=== PATIENT | female | born 1980 | race Caucasian/White ===

== ENCOUNTER 2019-09-18 04:05 | Emergency (ER) | payer OTHER ==
[~2019-09-18] VITALS: Ht 157.5 cm; Wt 63.5 kg
[~2019-09-18 04:05] MED LIST: ACETAMINOPHEN-1 EAC1 PO; AMITRIPTYLINE H25 M2 PO; BENTYL20 MG PO; BUSPAR 5 MG TABL5 M1 PO; BUSPAR30 MG PO; BUSPIRONE HCL15 MG PO; CIPRO250 M1 PO; CYMBALTA60 MG PO; ESTRACE2 MG PO; FLAGYL500 M1 PO; FLOMAX0.4 MG; HYDROCODON-ACE1 EACH PO; IBUPROFEN 400400 M2 PO; IMITREX4 MG/0.5 M SQ; INDERAL LA60 M1 PO; MACROBID 100 M100 M1 PO; MAXALT MLT10 MG PO; MIRTAZAPINE15 M1 PO; MOBIC7.5 MG PO; MONISTAT 7 COM1 EAC1 VAG; MYLANTA TABLET1 TA1 PO; NAPROSYN500 MG PO; NEURONTIN 300M300 M2 PO; NORCO 5-325 TA1 EACH PO; NORCO 7.5-3251 EACH PO; PAMELOR50 MG PO; PROPRANOLOL 20M20 MG PO; ROBAXIN 750 MG750 M1 PO; SEROQUEL 25 MG25 M1 PO; SUMAVEL DO6 MG/0.5 M SQ; VALIUM5 MG PO; VICODIN ES 7.51 EACH PO
[2019-09-18] MEDS ORDERED: ONZETRA XSAIL11 MG IM (04:15)
[2019-09-18] MEDS ORDERED: BUSPIRONE HCL10 MG PO (04:15)
[2019-09-18] MEDS ORDERED: FLEXERIL PO (04:40)
[2019-09-18] MEDS ORDERED: NORCO 5-325 TA1 EAC1 PO (04:40)
[2019-09-18 04:51] LABS: ABSOLUTE EOSINOPHILS 0.2 thou/uL (0.0-0.7); ABSOLUTE LYMPHOCYTES 2.4 thou/uL (0.8-5.3); ABSOLUTE MONOCYTES 0.4 thou/uL (0.0-1.2); ABSOLUTE NEUTROPHILS 2.4 thou/uL (1.6-8.1); BASOPHILS 0.7 %; EOSINOPHILS 3.3 %; HEMATOCRIT 36.5 % (37.0-47.0); HEMOGLOBIN 12.7 gm/dL (12.0-15.0); LYMPHOCYTES 44.1 %; MCH 32.6 pg (26.0-34.0); MCHC 34.7 g/dL (28.0-37.0); MCV 93.8 fL (80.0-100.0); MONOCYTES 7.6 %; MPV 8.5 fl. (7.2-11.1); NUCLEATED RBCS 0 /100WBC; PLATELET COUNT* 250 thou/uL (150-400); POLYS 44.3 %; RBC 3.89 mil/uL (4.20-5.00); RDW-CV 13.7 % (10.5-14.5); WBC 5.3 thou/uL (4.0-11.0)
[2019-09-18 05:28] LABS: CALCIUM 8.9 mg/dL (8.5-10.1); CREATININE 1.1 mg/dL (0.6-1.3); POTASSIUM 3.1 mmol/L (3.5-5.1)
[2019-09-18 05:33] LABS: ALBUMIN 4.1 g/dL (3.4-5.0); TOTAL BILIRUBIN 0.2 mg/dL (<0.1-1.0); TOTAL PROTEIN 7.2 g/dL (6.4-8.2)
[2019-09-18 05:43] VITALS: BP 152/100
--- NOTE | 2019-09-18 14:13 | EKG ---
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 : 1980 Requested By: Prasanth Lehman Order Number: [id number] MD: Soham Sheridan Measurements Intervals [place] Rate: 86 P: 49 AK: 178 QRS: 11 QRSD: 114 T: 46 QT: 353 QTc: 423 Interpretive Statements Sinus rhythm Probable left atrial enlargement Low voltage, precordial leads Consider anterior infarct Minimal ST depression, lateral leads Compared to ECG 03/09/2013 23:12:14 Low QRS voltage now present Myocardial infarct finding now present ST (T wave) deviation now present Sinus bradycardia no longer present Electronically Signed On 09-18-2019 14:11:15 CDT by Soham Sheridan [email or web address] <ELECTRONICALLY SIGNED> By: Soham Sheridan MD, [facility] 09/18/19 1411 0432 0432 Soham Sheridan MD, [facility] /EPI
== END 2019-09-18 05:46 | disposition home or self-care (01) ==
LOC: M.ERS 04:05
PROVIDERS: Family Medicine
DX: M79.602 Pain in left arm (principal); G43.909 Migraine, unspecified, not intractable, without status migrainosus; F41.9 Anxiety disorder, unspecified; F32.9 Major depressive disorder, single episode, unspecified; F17.210 Nicotine dependence, cigarettes, uncomplicated; Z90.710 Acquired absence of both cervix and uterus

== ENCOUNTER 2019-09-19 20:09 | Inpatient (IN) | payer OTHER ==
[~2019-09-19] VITALS: Ht 157.5 cm; Wt 66.2 kg
[~2019-09-19 20:09] MED LIST changes: +BUSPIRONE HCL10 MG PO; +FLEXERIL PO; +NORCO 5-325 TA1 EAC1 PO; +ONZETRA XSAIL11 MG IM
[2019-09-19 20:25] VITALS: BP 109/76
[2019-09-19 22:31] LABS: ABSOLUTE MONOCYTES 1.2 thou/uL (0.0-1.2); ABSOLUTE NEUTROPHILS 11.8 thou/uL (1.6-8.1); BASOPHILS 0.2 %; HEMATOCRIT 32.7 % (37.0-47.0); HEMOGLOBIN 11.2 gm/dL (12.0-15.0); LYMPHOCYTES 7.1 %; MCH 32.3 pg (26.0-34.0); MCHC 34.1 g/dL (28.0-37.0); MCV 94.6 fL (80.0-100.0); MONOCYTES 8.3 %; MPV 9.3 fl. (7.2-11.1); NUCLEATED RBCS 0 /100WBC; PLATELET COUNT* 192 thou/uL (150-400); POLYS 84.4 %; RBC 3.46 mil/uL (4.20-5.00)
[2019-09-19 22:49] LABS: CALCIUM 7.3 mg/dL (8.5-10.1); CREATININE 0.7 mg/dL (0.6-1.3); POTASSIUM 3.7 mmol/L (3.5-5.1)
[2019-09-19 22:59] LABS: ALBUMIN 3.3 g/dL (3.4-5.0); MAGNESIUM 1.7 mg/dL (1.8-2.4); TOTAL BILIRUBIN 0.6 mg/dL (<0.1-1.0); TOTAL PROTEIN 5.8 g/dL (6.4-8.2)
[2019-09-20] VITALS (10 sets, daily range): BP systolic 90–116; BP diastolic 58–83
[2019-09-20 00:17] LABS: AMP/METHAMP Negative (Negative); BARBITURATES Negative (Negative); BENZODIAZEPINES POSITIVE (Negative); COCAINE Negative (Negative); METHADONE Negative (Negative); OPIATES POSITIVE (Negative); PCP Negative (Negative); THC POSITIVE (Negative)
--- NOTE | 2019-09-20 07:43 | NUR ---
PATIENT ADMITTED TO ROOM 222 FROM THE ER AT APPROXIMATELY 0130. VSS ON RA. PATIENT ORIENTED TO ROOM AND POLICIES AND ADMISSION ASSESSMENT COMPLETED. IV IN RIGHT AC- HEPARIN DRIP INFUSING @ 7.62ML/HR. CARDIOLOGY CONSULTED IN THE ER AND CALLED. PATIENT HAS REMAINED NPO SINCE BEING ADMITTED TO UNIT. PATIENT INSTRUCTED TO USE CALL LIGHT WHEN NEEDING ASSISTANCE. HOURLY ROUNDS MADE. WILL CONTINUE WITH PLAN OF CARE AND NURSING TO MONITOR.
[2019-09-20 08:58] LABS: CHOLESTEROL 209 mg/dL (<200); HDL CHOLESTEROL 65 mg/dL (>40); LDL CHOLESTEROL 121 mg/dL (<100); SERUM ASSESSMENT Clear; TC:HDL 3.2 Ratio (Not establshd); TRIGLYCERIDE 115 mg/dL (<150); VLDL 23 mg/dL (<40)
--- NOTE | 2019-09-20 14:10 | EKG ---
[place] [address] ELECTROCARDIOGRAM REPORT Name: HOWARD SARGENTRosales Vyas Room: [address] ADM IN .R.#: [id number] Admission: 09/20/19 Attend Phys: Chayo Weems, Discharge: Date of : 78 Date of Service: 09/19/192014 Report #: [id number] THIS REPORT FOR: //name// [facility] ED Test Date: 2019-09-19 Test Time: 20:15:23 Pat Name: JORDEN SARGENT Department: Room: [facility] Gender: F Technology Teacher: : 1980 Requested By: Rosanne Rosa Order Number: [id number] MD: Vincent Reed Measurements Intervals [place] Rate: 118 P: 58 ND: 154 QRS: -6 QRSD: 92 T: 78 QT: 314 QTc: 441 Interpretive Statements Sinus tachycardia Probable left atrial enlargement Compared to ECG 09/18/2019 04:32:19 Sinus rate has increased Myocardial infarct finding no longer present ST (T wave) deviation no longer present Electronically Signed On 09-20-2019 14:08:17 CDT by Vincent Reed [email or web address] <ELECTRONICALLY SIGNED> By: Vincent Reed MD, FACC 09/20/19 1408 14 14 Vincent Reed MD, FAC /EPI
--- NOTE | 2019-09-20 14:11 | EKG ---
[place] [address] ELECTROCARDIOGRAM REPORT Name: JORDEN SARGENT Asael Room: [address] ADM IN .R.#: [id number] Admission: 09/20/19 Attend Phys: Chayo Weems, Discharge: Date of : 78 Date of Service: 09/19/19 2350 Report #: [id number] THIS REPORT FOR: //name// [facility] ED Test Date: 2019-09-19 Test Time: 23:50:21 Pat Name: JORDEN SARGENT Department: Room: [facility] Gender: F Bank Reconciliator: [facility] : 1980 Requested By: Rosanne Rosa Order Number: [id number] MD: Vincent Reed Measurements Intervals [place] Rate: 108 P: 61 NE: 166 QRS: 10 QRSD: 90 T: 58 QT: 345 QTc: 463 Interpretive Statements Sinus tachycardia Probable left atrial enlargement Compared to ECG 09/18/2019 04:32:19 ST (T wave) deviation no longer present Electronically Signed On 09-20-2019 14:09:30 CDT by Vincent Reed [email or web address] <ELECTRONICALLY SIGNED> By: Vincent Reed MD, [facility] 09/20/19 1409 2350 2350 Vincent Reed MD, [facility] /EPI
--- NOTE | 2019-09-20 16:22 | 2DMMODE ---
[place] [address] 2 D/M-MODE ECHOCARDIOGRAM Name: SARGENTJORDEN Room: [address] IN M.R.#: [id number] Admission: 09/20/19 Attend Phys: Chayo Weems, Discharge: Date of : 78 Date of Service: 09/20/19 1620 Report #: [id number] THIS REPORT FOR: cc: FAM - No family physician/PCP FAM - No family physician/PCP Vincent Reed MD [facility] ~ APPROVED REPORT Study performed: 09/20/2019 14:08:54 EXAM: Comprehensive 2D, Doppler, and color-flow Echocardiogram Patient Location: In-Patient BSA: 1.67 HR: 118 bpm BP: 98/67 mmHg Other Information Study Quality: Fair Indications Non STEMI Dyspnea Chest Pain 2D Dimensions IVSd: 11.79 (7-11mm) LVOT Diam: 18.65 (18-24mm) LVDd: 44.00 mm PWd: 10.48 (7-11mm) Ascending Ao: 28.21 (22-36mm) LVDs: 35.56 (25-40mm) Aortic Root: 23.91 mm Volumes Left Atrial Volume (Systole) LA ESV Index: 15.90 mL/m2 Aortic Valve AoV Peak Linwood.: 0.98 m/s AO Peak Gr.: 3.82 mmHg LVOT Max P.15 mmHg AO Mean Gr.: 2.20 mmHg LVOT Mean P.16 mmHg LVOT Max V: 0.73 m/s AO V2 VTI: 16.62 cm LVOT Mean V: 0.50 m/s THAIS (VTI): 2.31 cm2 LVOT V1 VTI: 14.06 [place] [address] 2 D/M-MODE ECHOCARDIOGRAM Name: JORDEN SARGENT Room: [address] IN .R.#: [id number] Admission: 09/20/19 Attend Phys: Chayo Weems, Discharge: Date of : 78 Date of Service: 09/20/19 1620 Report #: [id number] Mitral Valve E/A Ratio: 1.21 MV Decel. Time: 134.85 ms MV E Max Linwood.: 0.70 m/s MV PHT: 39.11 ms MVA (PHT): 5.63 cm2 TDI E/Lateral E': 14.00 E/Medial E': 7.78 Medial E' Linwood.: 0.09 m/s Lateral E' Linwood.: 0.05 m/s Pulmonary Valve PV Peak Linwood.: 0.79 m/s PV Peak Gr.: 2.52 mmHg Left Ventricle The left ventricle is normal size. There is mild inferolateral hypokinesis. There is normal left ventricular wall thickness. Left ventricular systolic function is borderline. LVEF is 50-55%. Right Ventricle The right ventricle is normal size. The right ventricular systolic function is normal. Atria The left atrium size is normal. The right atrium size is normal. Aortic Valve The aortic valve is normal in structure. No aortic regurgitation is present. There is no aortic valvular stenosis. Mitral Valve The mitral valve is normal in structure. Trace mitral regurgitation. No evidence of mitral valve stenosis. Tricuspid Valve The tricuspid valve is normal in structure. There is no tricuspid valve regurgitation noted. Pulmonic Valve The pulmonary valve is normal in structure. Trace pulmonic regurgitation. Great Vessels The aortic root is normal in size. IVC is [place] [address] 2 D/M-MODE ECHOCARDIOGRAM Name: ROSETTAJORDEN Room: [address] IN [facility]#: [id number] Admission: 09/20/19 Attend Phys: Chayo Weems, Discharge: Date of : 78 Date of Service: 09/20/19 1620 Report #: [id number] collapses >50% with inspiration. Pericardium There is no pericardial effusion. <Conclusion> The left ventricle is normal size. There is normal left ventricular wall thickness. Left ventricular systolic function is borderline. LVEF is 50-55%. The right ventricle is normal size. The left atrium size is normal. The aortic valve is normal in structure. The mitral valve is normal in structure. The tricuspid valve is normal in structure. IVC is normal in size and collapses >50% with inspiration. There is no pericardial effusion. There is mild inferolateral hypokinesis. <ELECTRONICALLY SIGNED> By: Vincent Reed MD, FACC 09/20/19 162 19 19 Vincent Reed MD, FACC /INF
--- NOTE | 2019-09-20 18:45 | NUR ---
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 DENIED ANY PAIN OR HITTING HEAD, NO VISIBLE TRAUMA, VSS. CHARGE NURSE, PHYSICIAN, AND HOUSE SUP NOTIFIED. PT IS IMPULSIVE, NEEDY, AND NON COMPLIANT WITH MEDICATION AND RULES. 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 EDUCATED PT ON IMPORTANCE OF NOT MOVING RIGHT EXTREMITY FOR ALLOTED TIME DUE TO POST CATH, PT STATES UNDERSTANDING BUT CONTINUES TO BE NON COMPLIANT. CATH SITE TO RIGHT GROIN SOFT, DRESSING CLEAN, DRY, AND INTACT, HOURLY ROUNDING COMPLETED.
[2019-09-20] MEDS ORDERED: DIAZEPAM 5 MG5 M1 PO (19:43)
[2019-09-21] VITALS (7 sets, daily range): BP systolic 83–101; BP diastolic 49–66
--- NOTE | 2019-09-21 03:45 | NUR ---
ASSUMED PT CARE AT 1915. NURSING ASSESSMENT COMPLETED AT START OF SHIFT. AA0X4, SR/ST ON MONOTYPE CASTER. PT ANXIOUS AND TEARFUL AT START OF SHIFT. RIGHT GROING CATH SITE DRESSING CLEAN, DRY AND INTACT. SOFT AND NO HEMATOMA PRESENT. AT 0000, INDUSTRIAL TRUCK OPERATOR NOTIFIED RN OF NOT ABLE TO WAKE PT UP DURING VITAL SIGNS. PT LETHARGIC, PT AROUSABLE WITH STERNAL RUB. VSS. PT STATED SHE TOOK SOME PILLS FROM HER PURSE BUT COULDNT TELL WHICH ONES. MEDICATIONS FOUND IN UNLABELED PILL POX (AMPHETAMINE, ADDERALL, VALIUM, ALPRAZOLAM, GABAPENTIN AND OXYCODONE, ALONG WITH VAPE PEN, ORE FEEDER, AND MARIJUANA OILS). MEDS STORED WITH PHARMACY AND OTHER ITEMS WITH SECURITY. PT VOICES NO CONCERNS AT THIS TIME. IVF INFUSING. DR. GONZALEZ NOTIFIED.
[2019-09-21 05:15] LABS: ABSOLUTE EOSINOPHILS 0.1 thou/uL (0.0-0.7); ABSOLUTE NEUTROPHILS 3.9 thou/uL (1.6-8.1); BASOPHILS 0.3 %; EOSINOPHILS 1.7 %; HEMATOCRIT 28.2 % (37.0-47.0); HEMOGLOBIN 9.7 gm/dL (12.0-15.0); LYMPHOCYTES 28.2 %; MCH 32.4 pg (26.0-34.0); MCHC 34.2 g/dL (28.0-37.0); MCV 94.8 fL (80.0-100.0); MONOCYTES 13.9 %; NUCLEATED RBCS 0 /100WBC; PLATELET COUNT* 179 thou/uL (150-400); POLYS 55.9 %; RBC 2.98 mil/uL (4.20-5.00); RDW-CV 13.4 % (10.5-14.5)
[2019-09-21 05:30] LABS: CALCIUM 7.8 mg/dL (8.5-10.1); CREATININE 0.8 mg/dL (0.6-1.3); POTASSIUM 3.6 mmol/L (3.5-5.1)
--- NOTE | 2019-09-21 08:53 | EKG ---
[place] [address] ELECTROCARDIOGRAM REPORT Name: JORDEN SARGENT Room: [address] ADM IN M.R.#: [id number] Admission: 09/20/19 Attend Phys: Chayo Weems, Discharge: Date of : 78 Date of Service: 09/21/19 0343 Report #: [id number] THIS REPORT FOR: //name// [facility] Test Date: 2019-09-21 Test Time: 03:43:53 Pat Name: JORDEN SARGENT Department: Room: [address] Gender: F Parts Room Assistant: JORDANA : 1980 Requested By: Chayo Weems Order Number: [id number] Reading MD: Uriel Real Measurements Intervals [place] Rate: 92 P: 47 MI: 173 QRS: -2 QRSD: 94 T: 59 QT: 362 QTc: 448 Interpretive Statements Sinus rhythm Low voltage, precordial leads Nonspecific T wave flattening Compared to ECG 09/19/2019 23:50:21 Low QRS voltage now present Sinus tachycardia no longer present Electronically Signed On 09-21-2019 8:51:51 CDT by Uriel Real [email or web address] <ELECTRONICALLY SIGNED> By: Uriel Real MD, FAC 09/21/19 0851 0343 0343 Uriel Real MD, FAC /EPI
[2019-09-21 10:24] LABS: URINE BILIRUBIN NEGATIVE (Negative); URINE BLOOD NEGATIVE (Negative); URINE CLARITY CLEAR; URINE COLOR YELLOW; URINE GLUCOSE-RANDOM NEGATIVE (Negative); URINE KETONES NEGATIVE (Negative); URINE LEUKOCYTES-REFLEX NEGATIVE (Negative); URINE NITRITE-REFLEX NEGATIVE (Negative); URINE PROTEIN NEGATIVE (Negative); URINE SPECIFIC GRAVITY <= 1.005 (1.005-1.030); URINE UROBILINOGEN 0.2 E.U./dl (0.2-1.0)
--- NOTE | 2019-09-21 19:54 | NUR ---
I ASSUMED CARE OF THE PATIENT AT 0700. SHE IS ALERT AND ORIENTED X4 AND IS UP WITH STAND BY ASSIST TO THE BATHROOM. BED IS IN THE LOW LOCKED POSITION AND CALL LIGHT IS IN REACH. HOURLY ROUNDING IS COMPLETED AND PATIENT NEEDS ARE MET. PAIN IS MANAGED WITH PRN MEDS. SHE WAS NPO MOST OF THE DAY AND THE QUALITY PROCESS ENGINEER MADE HER DINNER WHEN DIETARY DIDN'T. I SPOKE WITH SONJA ABOUT TESTING AND CONCERNS. IV WAS BLOWN IN CT, SO A LEFT AC WAS PLACED AND FLUIDS ARE RUNNING. SHE WILL BE NPO AGAIN AT 0900 IN THE MORNING FOR ANOTHER CTA. DROPLET ISOLATION WAS MAINTAINED. WILL CONTINUE TO MONITOR.
[2019-09-22] VITALS: BP 94/56
[2019-09-22 04:00] VITALS: BP 85/50
--- NOTE | 2019-09-22 07:58 | NUR ---
PT IS ABLE TO COMMUNICATE HER NEEDS TO STAFF EFFECTIVELY. CURRENT PAIN MEDICATION REGIMEN HAS BEEN ADEQUATE FOR CONTROLLING HER PAIN UP TO THIS TIME. SHE WILL BE NPO AFTER BREAKFAST THIS MORNING FOR A CTA LATER TODAY.
[2019-09-22 08:00] VITALS: BP 119/82
--- NOTE | 2019-09-22 09:00 | NUR ---
PT.ALERT AND ORIENTED. STATED SHE LIVES WITH HER . 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 NO USE OF DME. PLANS TO RETURN HOME AT DISCHARGE.
[2019-09-22 11:23] VITALS: BP 93/54
[2019-09-22] MEDS ORDERED: LIPITOR 40 MG T40 M1 PO (11:38)
[2019-09-22] MEDS ORDERED: PLAVIX 75 MG TA75 M1 PO (11:38)
[2019-09-22] MEDS ORDERED: ASPIR 8181 MG PO (11:38)
--- NOTE | 2019-09-22 12:29 | CARD ---
[address] [address] CARDIAC CATH REPORT Name: JORDEN SARGENT Room: [address] IN .R.#: [id number] Admission: 09/20/19 Attend Phys: Chayo Weems MD Discharge: Date of : 78 Report #: [id number] THIS REPORT FOR: //name// cc: REBECCA Colindres No family physician/PCP REBECCA - No family physician/PCP ~ ADDENDUM APPROVED REPORT Study performed: 09/20/2019 13:49:23 Patient Details Patient Status: In-Patient Room #: Event Personnel Yolis Rain Marencik, Brad Kucera, Becki, Lawhorn Procedures Performed Left heart catheterization left ventriculography and selective coronary arteriography Indication Non-STEMI Procedure Narrative The patient was brought electively to the Cardiac Catheterization Laboratory and was prepped and draped in a sterile manner. The right femoral was infiltrated with 2% Lidocaine subcutaneous anesthesia. A 6F Sheath sheath was inserted into the right femoral artery. Coronary angiography was performed using coronary diagnostic catheters. The right coronary system was accessed and visualized with a JR4 catheter. The left coronary system was accessed and visualized with a JL4 catheter. The left ventricle was accessed and visualized with a Straight Pigtail catheter. Left ventricular/Aortic Valve gradient assessed via catheter pullback. Left ventriculogram was performed in CALDERON projection. Pre-demployment femoral angiogram was performed . Closure device was deployed with a 6 Fr Mynx. The patient tolerated the procedure well and there were no complications associated with the procedure. There was no hematoma. Intraoperative Conscious Sedation Sedation start time: 1456 Case end Time: 1543 Fentanyl 25.0 mcg Versed 2.0 mg Fluoro Time: 3.4 [place] [address] CARDIAC CATH REPORT Name: SARGENTJORDEN Room: [address]#: [id number] Admission: 09/20/19 Attend Phys: Chayo Weems MD Discharge: Date of : 78 Report #: [id number] Dose: DAP 53308 cGycm2 560 mGy Contrast Type and Amount: 100 Diagnostic Cath Left Main Aneurysmal dilatation throughout the left main coronary artery LAD Aneurysmal dilatation of the proximal to mid LAD with 70% proximal and 50% mid LAD stenosis Diagonal 1 90% ostial stenosis Circumflex Aneurysmal dilatation of the proximal circumflex with subtotal mid vessel occlusion and WANDA I flow to a distal marginal branch Right Coronary Dominant vessel with aneurysmal proximal mid and distal narrowing with collateral filling through the septum to the LAD and to the distal marginal branch of the circumflex Left Ventriculography The left ventricle is normal in size with contractility. The left ventricular ejection fraction is estimated to be 50-55%. Left ventricular wall motion abnormalities are present. There is no mitral insufficiency. Mid inferior hypokinesis is noted Hemodynamics The aortic pressure is 102/55 mmHg with a mean of 66 mmHg. The left ventricular pressure is 91/0 mmHg with a mean of mmHg. The left ventricular end diastolic pressure is 9 mmHg. There was no gradient across the aortic valve upon pullback. Conclusion 1. Significant coronary artery disease characterized by the following: A aneurysmal dilatation throughout the left main coronary artery B aneurysmal dilatation of the proximal and mid LAD with 70% proximal and 50% mid LAD stenosis; there was 90% ostial/ proximal first diagonal stenosis C aneurysmal dilatation of the proximal circumflex with subtotal mid vessel occlusion and WANDA I flow to the distal marginal branch D aneurysmal dilatation of the proximal mid and distal portions of the dominant right coronary artery with collaterals noted through the septum to the LAD and also to the distal marginal [place] [address] CARDIAC CATH REPORT Name: SARGENTJORDEN Room: [address]#: [id number] Admission: 09/20/19 Attend Phys: Chayo Weems MD Discharge: Date of : 78 Report #: [id number] Recommendations Daily ASA with Plavix for at least one year Diagnostic Cath Approved by: Vincent Reed MD Date/Time: 09/20/2019 16:55:40 <ELECTRONICALLY SIGNED> By: Vincent Reed MD, [facility] 09/22/19 1227 1227 1227Vincent Reed MD, FACC /INF
[2019-09-22 13:27] VITALS: BP 93/54
[2019-09-22 15:21] VITALS: BP 104/69
[2019-09-22] MEDS ORDERED: NITROSTAT0.4 M1 SUBLING (16:20)
[2019-09-22] MEDS ORDERED: METOPROLOL TART25 MG PO (16:21)
[2019-09-29] MEDS ORDERED: LOPRESSOR50 MG PO (16:09)
[2019-09-29] MEDS ORDERED: FLEXERIL PO (16:12)
== END 2019-09-22 18:25 | disposition home or self-care (01) | DRG 280 ==
LOC: M.ERS 20:09 → M.2W 09-20 00:10 → M.TBA-ER 09-20 00:10 → M.2W 09-20 01:25
PROVIDERS: Emergency Medicine; Family Medicine; Internal Medicine; Registered Nurse; ADMIT Internal Medicine
DX: I21.4 Non-ST elevation (NSTEMI) myocardial infarction (principal); R65.11 Systemic inflammatory response syndrome (SIRS) of non-infectious origin with acute organ dysfunction; I31.9 Disease of pericardium, unspecified; M30.3 Mucocutaneous lymph node syndrome [Kawasaki]; F41.9 Anxiety disorder, unspecified; G89.29 Other chronic pain; I25.41 Coronary artery aneurysm; F12.90 Cannabis use, unspecified, uncomplicated; M54.9 Dorsalgia, unspecified; E78.5 Hyperlipidemia, unspecified; I25.118 Atherosclerotic heart disease of native coronary artery with other forms of angina pectoris; E83.42 Hypomagnesemia; N30.10 Interstitial cystitis (chronic) without hematuria; F32.9 Major depressive disorder, single episode, unspecified; G43.909 Migraine, unspecified, not intractable, without status migrainosus; Z79.899 Other long term (current) drug therapy; Z90.710 Acquired absence of both cervix and uterus; Z87.891 Personal history of nicotine dependence; Z03.818 Encounter for observation for suspected exposure to other biological agents ruled out

== ENCOUNTER 2019-10-02 09:26 | Observation (INO) | payer OTHER ==
[2019-10-02] VITALS (13 sets, daily range): BP systolic 87–157; BP diastolic 47–73
[~2019-10-02] VITALS: Ht 157.5 cm; Wt 59.4 kg
--- NOTE | ~2019-10-02 | H ---
[address] [address] HISTORY AND PHYSICAL Name: JORDEN SARGENT Room: [address] Clary Serrano#: [id number] Admission: 10/02/19 Attend Phys: Vincent Reed MD, Discharge: 10/03/19 Date of : 78 Report #: [id number] THIS REPORT FOR: //name// cc: Leora Tim NP, Stefany NP ~ THIS REPORT FOR: //name// Please refer to the History and Physical performed in the physician's office. By: 1455Medical Records Staff [facility]
[~2019-10-02 09:26] MED LIST changes: +ASPIR 8181 MG PO; +DIAZEPAM 5 MG5 M1 PO; +LIPITOR 40 MG T40 M1 PO; +LOPRESSOR50 MG PO; +METOPROLOL TART25 MG PO; +NITROSTAT0.4 M1 SUBLING; +PLAVIX 75 MG TA75 M1 PO
[2019-10-02 09:56] LABS: HEMATOCRIT 35.4 % (37.0-47.0); HEMOGLOBIN 12.1 gm/dL (12.0-15.0); MCHC 34.2 g/dL (28.0-37.0); MCV 93.7 fL (80.0-100.0); MPV 8.9 fl. (7.2-11.1); RBC 3.78 mil/uL (4.20-5.00); RDW-CV 13.1 % (10.5-14.5); WBC 5.4 thou/uL (4.0-11.0)
[2019-10-02 10:09] LABS: ALBUMIN 3.8 g/dL (3.4-5.0); CALCIUM 8.2 mg/dL (8.5-10.1); CREATININE 0.9 mg/dL (0.6-1.3); POTASSIUM 3.6 mmol/L (3.5-5.1); TOTAL BILIRUBIN 0.1 mg/dL (<0.1-1.0); TOTAL PROTEIN 7.2 g/dL (6.4-8.2)
--- NOTE | 2019-10-02 15:51 | EKG ---
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
--- NOTE | 2019-10-02 15:52 | EKG ---
[place] [address] ELECTROCARDIOGRAM REPORT Name: JORDEN SARGENT Asael Room: [address]R.#: [id number] Admission: 10/02/19 Attend Phys: Umair Londono Discharge: Date of : 78 Date of Service: 10/02/19 1235 Report #: [id number] THIS REPORT FOR: //name// [facility] Test Date: 2019-10-02 Test Time: 12:35:23 Pat Name: JORDEN SARGENT Department: Room: [facility] Gender: F Desktop Specialist: HARRIET : 1980 Requested By: Vincent Reed Order Number: [id number] Ritesh MD: Vincent Reed Measurements Intervals [place] Rate: 96 P: 42 [place]: 188 QRS: -5 QRSD: 115 T: 31 QT: 371 QTc: 469 Interpretive Statements Sinus rhythm Consider left atrial enlargement Nonspecific intraventricular conduction delay Low voltage, precordial leads Compared to ECG 09/21/2019 03:43:53 Intraventricular conduction delay now present T-wave abnormality no longer present Electronically Signed On 10-02-2019 15:49:43 CDT by Vincent Reed [email or web address] <ELECTRONICALLY SIGNED> By: Vincent Reed MD, [facility] 10/02/19 1549 1235 1235 Vincent Reed MD, [facility] /EPI
--- NOTE | 2019-10-02 16:33 | CARD ---
[address] [address] CARDIAC CATH REPORT Name: JORDEN SARGENT Asael Room: [address] Zach#: [id number] Admission: 10/02/19 Attend Phys: Vincent Reed MD, Discharge: Date of : 78 Report #: [id number] THIS REPORT FOR: //name// cc: Leora Tim NP, Stefany NP ~ APPROVED REPORT Study performed: 10/02/2019 09:23:04 Patient Details Patient Status: Out-Patient Room #: The patient is a 39 year-old female Event Personnel Vincent Reed Heel Painter, Uche Parmar RTR Monitor, Roxana Rosen RN RN, Yolis Quiroga RN, Hernandez Longo CONTACT PERSON Scrub Procedures Performed Left Heart Cath w/or w/o Coronaries [id number] [facility] Place w/wo Plasty Addl BR DIAG 1 C9601 DESADDL Hemostasis w/ Angioseal Indication Unstable angina Risk Factors Hypercholesterolemia Previous Procedures/Diagnoses Previous PA Admission/Lab Medications/Medications given during procedure Fentanyl IV 25 mcg, Midazolam (Versed) IV 1 mg, Lidocaine Subcut 20 ml, Dopamine IV 10 mcg per kg per min, Atropine IV 0.5 mg, Angiomax IV 9 ml, Angiomax IV 20.83 ml per hr, Zofran (Ondansetron) IV 4 mg, Plavix PO 300 mg, Aspirin PO 162 mg Procedure Narrative The patient was brought electively to the Cardiac Catheterization Laboratory and was prepped and draped in a sterile manner. The right femoral was infiltrated with 2% Lidocaine subcutaneous anesthesia. A Carrizozo 6 FR sheath was inserted into the right femoral artery. Coronary angiography was performed using coronary diagnostic catheters. The right coronary system was [place] [address] CARDIAC CATH REPORT Name: HOWARD SARGENTRosales Vyas Room: [address] M.R.#: [id number] Admission: 10/02/19 Attend Phys: Vincent Reed MD, Discharge: Date of : 78 Report #: [id number] a Diagnostic JR4 6Fr catheter. The left coronary system was accessed and visualized with a Diagnostic JL4 6Fr catheter. The left ventricle was accessed and visualized with a Diagnostic Pigtail St. 6Fr catheter. Left ventricular/Aortic Valve gradient assessed via catheter pullback. Pre-demployment femoral angiogram was performed . Closure device was deployed with a 6 Fr Angioseal. The patient tolerated the procedure well and there were no complications associated with the procedure. There was no hematoma. Intraoperative Conscious Sedation Sedation start time: 1043 Case end Time: 1150 Fentanyl 25 mcg Versed 2 mg Fluoro Time: 13.1 minutes Dose: DAP 78310 cGycm2 1053.72 mGy Contrast Type and Amount: Visipaque 210 ml Diagnostic Cath Left Main Aneurysmal dilatation without significant narrowing LAD Aneurysmal dilatation of the proximal mid LAD with 50% proximal and 40% mid vessel narrowing; there was 90% ostial first diagonal stenosis Circumflex Total occlusion of the proximal portion of the nondominant circumflex with [id number] collaterals filling the distal circumflex Right Coronary Aneurysmal dilatation of the proximal mid and distal vessel with collaterals from the distal right coronary treated through the septum to the LAD and to the distal circumflex Left Ventriculography Left Ventriculography was not performed. Hemodynamics The aortic pressure is 96/59 mmHg with a mean of 74 mmHg. The left ventricular pressure is 77/0 mmHg with a mean of mmHg. The left ventricular end diastolic pressure is 9 mmHg. There was no gradient across the aortic valve upon pullback. PCI Technique Lesion Anticoagulation was achieved with Angiomax. Percutaneous coronary intervention was performed on the first diagnonal branch segment. The lesion stenosis prior to intervention was 90% with WANDA 3 flow. A 6F XB LAD 3.5 Guide Catheter was used to engage the Left ostium. A BMW 190cm Interventional Guidewire was used [place] [address] CARDIAC CATH REPORT Name: JORDEN SARGNET Room: [address] M.RLuis Felipe#: [id number] Admission: 10/02/19 Attend Phys: Vincent Reed MD, Discharge: Date of : 78 Report #: [id number] BALLOON DILATION A Balloon catheter Trek RX 2.25 X 8 was inserted and inflated up to 14.00atm for 10seconds. Additional Inflation: 18.00atm for 12seconds. STENT DEPLOYMENT A drug-eluting stent Resolute RX 2.5X8 was inserted and inflated up to 10.00atm for 13seconds. Additional Inflation: 12.00atm for 9seconds. Additional Inflation: 12.00atm for 9seconds. POST STENT DEPLOYMENT BALLOON DILATION A Balloon catheter NC Trek RX 2.75 X 8 was inserted and inflated up to 16.00atm for 12seconds. Additional Inflation: 18.00atm for 10seconds. Additional Inflation: 20.00atm for 16seconds. Final angiography reveals 10 % stenosis with WANDA 3 flow. Conclusion 1. Significant coronary artery disease characterized by the following: A aneurysmal dilatation of the left main coronary artery B aneurysmal dilatation of the proximal/mid LAD with 50% proximal and 40% mid LAD narrowing C total occlusion of the proximal nondominant circumflex D aneurysmal dilatation of the proximal mid and distal right coronary tree with collaterals from the distal right coronary artery through the septum to the LAD and to the distal circumflex 2. Normal left-sided hemodynamic study 3. Successful PCI with deployment of a drug-eluting stent at site of 90% ostial first diagonal stenosis with 10% residual narrowing and WANDA-3 flow to the distal vessel Recommendations Cardiac Risk Reduction Program Aggressive Medical Therapy Medications Administered Aspirin (any) [place] [address] CARDIAC CATH REPORT Name: JORDEN SARGENT Asael Room: [address] Clary Serrano#: [id number] Admission: 10/02/19 Attend Phys: Vincent Reed MD, Discharge: Date of : 78 Report #: [id number] Clopidogrel Diagnostic Cath Approved by: Vincent Reed MD Date/Time: 10/02/2019 16:29:54 <ELECTRONICALLY SIGNED> By: Vincent Reed MD, FACC 10/02/19 1632 163 1632Vincent Reed MD, FACC /INF
--- NOTE | 2019-10-02 19:00 | NUR ---
PT VSS, A&OX4, ROOM AIR, SR ON TELE, POST CATH- RIGHT GROIN SITE- DRESSING CLEAN DRY INTACT, UP AT 2000. HOURLY ROUNDING PERFORMED, POSSESSIONS AND CALL LIGHT WITHIN REACH. UP AD MICHELE, CHRONIC PAIN PATIENT,
[2019-10-03] VITALS: BP 99/70
--- NOTE | 2019-10-03 02:34 | NUR ---
PT ALERT ORIENTED. OOB AT 2024. R GRION SITE WITH DRSG. SOFT NO BRUSING. HYDROCODONE GIVEN FOR GENERALIZED AND R GROIN SITE PAIN. TELEMETRY SHOWS SR. WCTM
[2019-10-03 04:11] VITALS: BP 101/70
[2019-10-03 06:11] LABS: HEMATOCRIT 32.1 % (37.0-47.0); HEMOGLOBIN 10.9 gm/dL (12.0-15.0); MCH 31.8 pg (26.0-34.0); MCHC 34.1 g/dL (28.0-37.0); MCV 93.2 fL (80.0-100.0); MPV 8.6 fl. (7.2-11.1); RBC 3.45 mil/uL (4.20-5.00); RDW-CV 13.4 % (10.5-14.5); WBC 5.2 thou/uL (4.0-11.0)
[2019-10-03 06:33] LABS: ALKALINE PHOSPHATASE 59 U/L (46-116); ANION GAP 7 mmol/L (7-16); BUN 10 mg/dL (7-18); CALCIUM 7.4 mg/dL (8.5-10.1); CHLORIDE 108 mmol/L (98-107); CHOLESTEROL 141 mg/dL (<200); CO2 27 mmol/L (21-32); CREATININE 0.8 mg/dL (0.6-1.3); GLUCOSE 88 mg/dL (70-99); HDL CHOLESTEROL 22 mg/dL (>40); LDL CHOLESTEROL 75 mg/dL (<100); POTASSIUM 3.6 mmol/L (3.5-5.1); SGOT 14 U/L (15-37); SGPT 21 U/L (30-65); SODIUM 142 mmol/L (136-145); TC:HDL 6.4 Ratio (Not establshd); TOTAL BILIRUBIN 0.1 mg/dL (<0.1-1.0); TRIGLYCERIDE 223 mg/dL (<150); VLDL 45 mg/dL (<40)
[2019-10-03 06:34] LABS: SERUM ASSESSMENT Clear
[2019-10-03 06:35] LABS: TROPONIN-I LEVEL 1.97 ng/mL (<0.06)
[2019-10-03 08:00] VITALS: BP 96/67
[2019-10-03 12:00] VITALS: BP 117/77
[2019-10-03 12:31] VITALS: BP 110/70
--- NOTE | 2019-10-03 15:29 | EKG ---
[place] [address] ELECTROCARDIOGRAM REPORT Name: JORDEN SARGENT Room: [address]R.#: [id number] Admission: 10/02/19 Attend Phys: Umair Londono Discharge: Date of : 78 Date of Service: 10/03/19 0836 Report #: [id number] THIS REPORT FOR: //name// [facility] Test Date: 2019-10-03 Test Time: 08:36:14 Pat Name: JORDEN SARGENT Department: Room: [facility] Gender: F Solution Professional: : 1980 Requested By: Vincent Reed Order Number: [id number] Reading MD: Uriel Real Measurements Intervals [place] Rate: 83 P: 38 TN: 201 QRS: 0 QRSD: 83 T: 71 QT: 341 QTc: 401 Interpretive Statements Sinus rhythm Low voltage, precordial leads Possible anteroseptal infarct, old Compared to ECG 10/02/2019 12:35:23 Myocardial infarct finding now present Intraventricular conduction delay no longer present Electronically Signed On 10-03-2019 15:28:43 CDT by Uriel Real [email or web address] <ELECTRONICALLY SIGNED> By: Uriel Real MD, [facility] 10/03/19 1528 0836 0836 Uriel Real MD, [facility] /EPI
--- NOTE | 2019-10-03 16:25 | D ---
[address] [address] DISCHARGE SUMMARY Name: JORDEN SARGENT Asael Room: [address] Clary Serrano#: [id number] Admission: 10/02/19 Attend Phys: Vincnet Reed MD, Discharge: 10/03/19 Date of : 78 Report #: [id number] THIS REPORT FOR: //name// cc: Leora Tim NP, Stefany NP ~ THIS REPORT FOR: //name// CC: Vincent Tim FINAL DISCHARGE DIAGNOSES: 1. Unstable angina. 2. Coronary artery disease, status post recent myocardial infarction. 3. Status post percutaneous transluminal coronary angioplasty with stenting. 4. Hyperlipidemia. 5. 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 6. Resting tachycardia. PROCEDURES: 10/02/2019 -- left heart catheterization, selective coronary arteriography and placement of a drug-eluting stent at site of ostial 90% first diagonal stenosis. 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 Subsequently, the patient has done reasonably well, but recently presented with myocardial infarction and was found to have aneurysmal dilatations of the left main, proximal mid LAD, proximal circumflex with proximal, mid and distal right coronary artery. She had a total circumflex occlusion, leading to the infarct with some collaterals from the right filling the distal circumflex and through the septum to the LAD. The films were reviewed with multiple practitioners, we also elected to proceed with percutaneous coronary intervention to the high-grade first diagonal stenosis of 90%. Since discharge 1 week ago, the patient had some episodes of chest discomfort, strongly suggestive of recurrent angina in the context of a high-grade first diagonal stenosis. She underwent recatheterization on 10/01, which revealed anatomy as noted before with total occlusion of the circumflex with aneurysmal dilatations as outlined above. She had 90% ostial first diagonal stenosis. I placed one 2.5 x 8 mm Mendel drug-eluting stent at the ostium of the first diagonal and post-dilated to 2.9 mm with 10% residual narrowing and WANDA-3 flow to the distal vessel. The patient did [place] [address] DISCHARGE SUMMARY Name: JORDEN SARGENT Asael Room: [address] Clary Serrano#: [id number] Admission: 10/02/19 Attend Phys: Vincent Reed MD, Discharge: 10/03/19 Date of : 78 Report #: [id number] LABORATORY DATA: On 10/02 revealed a sodium of 142, potassium 3.6, BUN 10, creatinine 0.8, glucose 88. Hemoglobin 10.9, white blood cell count 5200 with 355,000 platelets. Troponin shemar minimally to 1.97. She did well post-procedurally and there was good hemostasis at the right femoral site of catheterization. The patient was discharged to home in stable condition on the following medications: Amitriptyline 25 mg as needed, aspirin 81 mg daily, atorvastatin 40 mg at bedtime, buspirone 30 mg b.i.d., Plavix 75 mg daily with a 300 mg darnell-procedural dose, estradiol or Estrace 2 mg at bedtime, gabapentin 300 mg t.i.d., meloxicam 7.5 mg b.i.d., metoprolol tartrate 50 mg b.i.d., quetiapine 100 mg at bedtime, cyclobenzaprine or Flexeril 10 mg t.i.d. p.r.n., diazepam 10 mg at bedtime p.r.n., hydrocodone/acetaminophen 5/325 one tablet every 6 hours as needed, sumatriptan succinate 10 mg t.i.d. p.r.n. The patient ambulated in the hallways without difficulty and there was good hemostasis at the right femoral site. She was discharged to home in stable condition with followup with my nurse practitioner, [place] Anton, on 10/16/2019 at 10:30 and myself on 12/12/2019 at 10:30. Therefore, the patient is discharged to home in stable condition with followup as iterated above. <ELECTRONICALLY SIGNED> By: Vincent Reed MD, [facility] 10/03/19 1625 0949 [id number] Reed MD, [facility] /nt
--- NOTE | 2019-10-03 20:06 | NUR ---
PT VSS, ST ON TELE, ROOM AIR, UP AD MICHELE, POST CATH- RIGHT GROIN SITE- DRESSING CLEAN, DRY & INTACT, NO HEMATOMA, HOURLY ROUNDING PERFORMED, POSSESSIONS AND CALL LIGHT WITHIN REACH. REC DISCHARGE ORDERS, REVIEWED WITH PATIENT, TELE MONITOR AND IV REMOVED WITHOUT COMPLICATION. PT TAKEN TO FRONT DOOR IN WHEELCHAIR BY NURSING STAFF, PICKED UP BY SPOUSE
== END 2019-10-03 13:45 | disposition home or self-care (01) ==
LOC: M.CL 09:26 → M.2W 12:16 → M.TBA-CV 12:16 → M.2W 15:20
PROVIDERS: ADMIT Internal Medicine; ATTEND Internal Medicine
DX: I25.10 Atherosclerotic heart disease of native coronary artery without angina pectoris (principal); I10 Essential (primary) hypertension; E78.5 Hyperlipidemia, unspecified

== ENCOUNTER → 2019-12-20 | Outpatient (CLI) | payer OTHER ==
[2019-12-20 15:17] LABS: CHOLESTEROL 188 mg/dL (<200); HDL CHOLESTEROL 59 mg/dL (>40); LDL CHOLESTEROL 111 mg/dL (<100); TC:HDL 3.2 Ratio (Not establshd); TRIGLYCERIDE 92 mg/dL (<150); VLDL 18 mg/dL (<40)
[2019-12-20 15:19] LABS: SERUM ASSESSMENT Clear
== END ==
LOC: M.LAB 14:43
PROVIDERS: ATTEND Registered Nurse
DX: E78.5 Hyperlipidemia, unspecified (principal)

== ENCOUNTER 2020-02-09 12:42 | Emergency (ER) | payer OTHER ==
[~2020-02-09] VITALS: Ht 157.5 cm; Wt 65.8 kg
[2020-02-09] MEDS ORDERED: MULTIVITAMINS1 EAC7 (14:12)
[2020-02-09] MEDS ORDERED: VITAMIN D310 MC4 (14:14)
[2020-02-09] MEDS ORDERED: MAGNESIUM250 M1 (14:16)
[2020-02-09] MEDS ORDERED: MELATONIN5 MG (14:17)
[2020-02-09] MEDS ORDERED: LORCET 5-325 M1 EACH PO (15:24)
[2020-02-09 15:47] VITALS: BP 112/56
== END 2020-02-09 15:48 | disposition home or self-care (01) ==
LOC: M.ERS 12:42
DX: R51.9 Headache, unspecified (principal); M25.561 Pain in right knee; M25.551 Pain in right hip; M25.571 Pain in right ankle and joints of right foot; G43.909 Migraine, unspecified, not intractable, without status migrainosus; I25.10 Atherosclerotic heart disease of native coronary artery without angina pectoris; F17.210 Nicotine dependence, cigarettes, uncomplicated; Z79.899 Other long term (current) drug therapy; Z90.710 Acquired absence of both cervix and uterus

== ENCOUNTER 2020-02-24 03:08 | Inpatient (IN) | payer OTHER ==
[~2020-02-24] VITALS: Ht 160 cm; Wt 56.6 kg
[~2020-02-24 03:08] MED LIST changes: +LORCET 5-325 M1 EACH PO; +MAGNESIUM250 M1; +MELATONIN5 MG; +MULTIVITAMINS1 EAC7; +VITAMIN D310 MC4
[2020-02-24 03:13] VITALS: BP 119/83
[2020-02-24 03:38] LABS: ABSOLUTE BASOPHILS 0.1 thou/uL (0.0-0.2); ABSOLUTE EOSINOPHILS 0.1 thou/uL (0.0-0.7); ABSOLUTE LYMPHOCYTES 2.6 thou/uL (0.8-5.3); ABSOLUTE MONOCYTES 0.9 thou/uL (0.0-1.2); BASOPHILS 0.7 %; EOSINOPHILS 1.9 %; HEMATOCRIT 40.4 % (37.0-47.0); HEMOGLOBIN 13.4 gm/dL (12.0-15.0); LYMPHOCYTES 33.9 %; MCH 31.4 pg (26.0-34.0); MCHC 33.3 g/dL (28.0-37.0); MCV 94.4 fL (80.0-100.0); MONOCYTES 11.5 %; MPV 8.5 fl. (7.2-11.1); NUCLEATED RBCS 0 /100WBC; PLATELET COUNT* 226 thou/uL (150-400); RBC 4.28 mil/uL (4.20-5.00); RDW-CV 13.4 % (10.5-14.5); WBC 7.7 thou/uL (4.0-11.0)
[2020-02-24 03:49] LABS: CALCIUM 9.4 mg/dL (8.5-10.1); POTASSIUM 3.4 mmol/L (3.5-5.1)
[2020-02-24 03:51] LABS: APTT 27.7 Seconds (25.0-31.3)
[2020-02-24 04:00] LABS: ALBUMIN 4.2 g/dL (3.4-5.0); TOTAL BILIRUBIN 0.7 mg/dL (<0.1-1.0); TOTAL PROTEIN 8.3 g/dL (6.4-8.2)
[2020-02-24 08:24] VITALS: BP 102/68
[2020-02-24 12:45] VITALS: BP 87/58
[2020-02-24 12:50] VITALS: BP 92/63
--- NOTE | 2020-02-24 15:00 | EKG ---
[place] [address] ELECTROCARDIOGRAM REPORT Name: SARGENTJORDEN Room: [address] ADM IN .R.#: [id number] Admission: 02/24/20 Attend Phys: Jorge Schofield, Discharge: Date of : 78 Date of Service: 02/24/20 0314 Report #: [id number] THIS REPORT FOR: //name// [facility] ED Test Date: 2020-02-24 Test Time: 03:14:18 Pat Name: JORDEN SARGENT Department: Room: [facility] Gender: F [employer] Certified Network Associate: [place] : 1980 Requested By: Michelle Kern Order Number: [id number] MD: Uriel Real Measurements Intervals [place] Rate: 106 P: 51 NE: 175 QRS: 0 QRSD: 89 T: 40 QT: 328 QTc: 436 Interpretive Statements Sinus tachycardia Left atrial enlargement Low voltage, precordial leads Compared to ECG 10/03/2019 08:36:14 Atrial abnormality now present Sinus rhythm no longer present Myocardial infarct finding no longer present Electronically Signed On 02-24-2020 15:00:02 CDT by Uriel Real [email or web address] <ELECTRONICALLY SIGNED> By: Uriel Real MD, FACC 02/24/20 1500 3 3 Uriel Real MD, FACC /EPI
[2020-02-24 16:00] VITALS: BP 98/65
[2020-02-24 16:38] LABS: AMP/METHAMP Negative (Negative); BARBITURATES Negative (Negative); BENZODIAZEPINES POSITIVE (Negative); COCAINE Negative (Negative); METHADONE Negative (Negative); OPIATES POSITIVE (Negative); PCP Negative (Negative); THC POSITIVE (Negative)
[2020-02-24 20:14] VITALS: BP 100/58
[2020-02-25 00:30] VITALS: BP 93/72
[2020-02-25 04:45] VITALS: BP 96/64
[2020-02-25 05:31] LABS: ABSOLUTE LYMPHOCYTES 1.1 thou/uL (0.8-5.3); ABSOLUTE MONOCYTES 1.2 thou/uL (0.0-1.2); ABSOLUTE NEUTROPHILS 8.7 thou/uL (1.6-8.1); BASOPHILS 0.1 %; EOSINOPHILS 0.1 %; HEMATOCRIT 35.4 % (37.0-47.0); HEMOGLOBIN 11.6 gm/dL (12.0-15.0); LYMPHOCYTES 9.8 %; MCH 31.2 pg (26.0-34.0); MCHC 32.9 g/dL (28.0-37.0); MCV 94.8 fL (80.0-100.0); NUCLEATED RBCS 0 /100WBC; PLATELET COUNT* 274 thou/uL (150-400); RBC 3.73 mil/uL (4.20-5.00); RDW-CV 13.3 % (10.5-14.5)
[2020-02-25 05:53] LABS: CALCIUM 8.5 mg/dL (8.5-10.1); CREATININE 0.9 mg/dL (0.6-1.3); POTASSIUM 3.7 mmol/L (3.5-5.1)
[2020-02-25 08:30] VITALS: BP 101/74
[2020-02-25 08:50] VITALS: BP 101/74
[2020-02-25] MEDS ORDERED: TOPROL XL100 MG PO (11:04)
--- NOTE | 2020-02-25 13:00 | CON ---
[address] [address] CONSULTATION Name: JORDEN SARGENT Room: [address] IN M.R.#: [id number] Admission: 02/24/20 Attend Phys: Jorge Schofield MD Discharge: Date of : 78 Report #: [id number] THIS REPORT FOR: //name// cc: Leora Tim Stefany RNP ~ DATE OF SERVICE: 02/24/2020 INDICATION: Chest pain. HISTORY OF PRESENT ILLNESS: The patient is a very pleasant 40-year-old white female with history of Kawasaki's coronary artery disease. She had recent non-ST elevation myocardial infarction at which time she had a drug-eluting stent placed to the ostium of a first diagonal branch of the left anterior descending coronary artery. At catheterization, the patient is noted to have extensive aneurysmal formation along the proximal to mid LAD, mid diagonal as well as the proximal to distal right coronary artery. The circumflex appeared to be chronically occluded. The patient has preserved left ventricular systolic function by noninvasive studies including recent echocardiogram. The patient presents with recurrent upper chest pain radiating to the left arm over the past 2 days. This has been persistent. She does have a worsening of her pain with deep inspiration. She denies any shortness of breath or diaphoresis. Initial cardiac enzymes are negative x 3 sets. EKG shows a sinus rhythm without acute ST or T-wave abnormality. She reports a history of some type of immunologic inflammatory illness for which she takes indomethacin 50 mg twice daily. Remotely as a child she had a nonspecific illness for which she receives IVIG and a significant amount of steroids. PAST MEDICAL HISTORY: 1. Coronary artery disease in the form of Kawasaki's coronary artery disease. 2. Fibromyalgia. 3. History of recent percutaneous coronary intervention. 4. History of hysterectomy. 5. Interstitial cystitis. 6. Migraines. 7. Herniated bulging C-spine disks. 8. Depression. 9. Anxiety. FAMILY HISTORY: Noncontributory. SOCIAL HISTORY: The patient quit smoking several years ago. Prior to that, she did not smoke a significant amount, reporting a pack of cigarettes weekly. She [place] [address] CONSULTATION Name: JORDEN SARGENT Room: [address] IN [facility]#: [id number] Admission: 02/24/20 Attend Phys: Jorge Schofield MD Discharge: Date of : 78 Report #: [id number] REVIEW OF SYSTEMS: A 14-point review of systems otherwise negative. PHYSICAL EXAMINATION: VITAL SIGNS: Stable. Blood pressure is 92/63, pulse is 105 and regular. GENERAL: This is a pleasant lady in no acute distress. HEENT: The patient is wearing glasses. Extraocular muscles intact. Mucous membranes are moist. NECK: Shows no jugular venous distention. There are no carotid bruits. CHEST: Reveals clear lung vera without wheezes or rales. CARDIOVASCULAR: Reveals a regular rhythm, normal S1 and S2. I do not appreciate gallop or murmur. ABDOMEN: Reveals normal bowel sounds. The abdomen is soft, nontender. EXTREMITIES: Shows no edema. Peripheral pulses are 2+ and easily palpable. LABORATORY DATA: Reviewed. Electrolytes are essentially within normal limits. Renal function is normal. Troponins are less than 0.06 on 2 separate occasions. NT-proBNP is 706. CBC is unremarkable. RADIOLOGY EXAMS: Show a CTA of the chest that shows no evidence of pulmonary embolus or dissection. CT does report a pericardial effusion. Chest x-ray was not significantly abnormal. IMPRESSION AND RECOMMENDATIONS: 1. Chest pain, etiology not clear. The pain currently sounds more pleuritic than cardiac in nature. Would give extra anti-inflammatory agents at this time and see if that alleviates her pain. 2. History of coronary artery disease in the form of Kawasaki's disease. Continue dual antiplatelet therapy at this time. 3. History of percutaneous coronary intervention with direct drug-eluting stent placement in August of this year. Continue dual antiplatelet therapy. 4. Tachycardia. The patient's heart rate is somewhat fast. I would increase beta luzma at this time. 5. History of dyslipidemia. Continue statin agent and repeat fasting lipid profile. <ELECTRONICALLY SIGNED> By: Uriel Real MD, FACC 02/25/20 1300 1438 1455Micjosé Real MD, FACC /nt
--- NOTE | 2020-02-26 13:17 | EKG ---
[place] [address] ELECTROCARDIOGRAM REPORT Name: ROSETTAJORDEN Vyas Room: [address] IN .R.#: [id number] Admission: 02/24/20 Attend Phys: Jorge Schofield, Discharge: 02/25/20 Date of : 78 Date of Service: 02/24/20 0955 Report #: [id number] THIS REPORT FOR: //name// [facility] ED Test Date: 2020-02-24 Test Time: 09:55:23 Pat Name: JORDEN SARGENT Department: Room: [address] Gender: F Clinical Psychologist Private Practice: : 1980 Requested By: Michelle Kern Order Number: [id number] Ritesh MD: Soham Sheridan Measurements Intervals [place] Rate: 113 P: 46 [place]: 172 QRS: 9 QRSD: 83 T: 76 QT: 307 QTc: 421 Interpretive Statements Sinus tachycardia Low voltage, precordial leads Compared to ECG 02/24/2020 03:14:18 Atrial abnormality no longer present Electronically Signed On 02-26-2020 13:17:30 [employer]UC[employer] by Soham Sheridan [email or web address] <ELECTRONICALLY SIGNED> By: Soham Sheridan MD, FACC 02/26/20 1317 0955 0955 Soham Sheridan MD, [facility] /EPI
== END 2020-02-25 13:50 | disposition home or self-care (01) | DRG 313 ==
LOC: M.ERS 03:08 → M.2W 04:34 → M.TBA-ER 04:34 → M.2W 04:34 → M.TBA-ER 04:34 → M.2W 09:35
PROVIDERS: Personal Emergency Response Attendant; ADMIT Internal Medicine; ATTEND Internal Medicine
DX: R07.89 Other chest pain (principal); I31.3 Pericardial effusion (noninflammatory); I25.119 Atherosclerotic heart disease of native coronary artery with unspecified angina pectoris; F41.9 Anxiety disorder, unspecified; F32.9 Major depressive disorder, single episode, unspecified; G43.909 Migraine, unspecified, not intractable, without status migrainosus; M79.7 Fibromyalgia; R00.2 Palpitations; E78.5 Hyperlipidemia, unspecified; R00.0 Tachycardia, unspecified; Z20.828 Contact with and (suspected) exposure to other viral communicable diseases; Z95.5 Presence of coronary angioplasty implant and graft; Z90.710 Acquired absence of both cervix and uterus; Z79.01 Long term (current) use of anticoagulants; Z79.82 Long term (current) use of aspirin; Z79.899 Other long term (current) drug therapy; Z87.891 Personal history of nicotine dependence

== ENCOUNTER 2020-02-26 10:36 | Inpatient (IN) | payer OTHER ==
[~2020-02-26] VITALS: Ht 157.5 cm; Wt 32.2 kg
[~2020-02-26 10:36] MED LIST changes: +TOPROL XL100 MG PO
[2020-02-26 10:41] VITALS: BP 101/65
[2020-02-26 11:13] LABS: ABSOLUTE EOSINOPHILS 0.1 thou/uL (0.0-0.7); ABSOLUTE LYMPHOCYTES 1.4 thou/uL (0.8-5.3); ABSOLUTE MONOCYTES 1.1 thou/uL (0.0-1.2); ABSOLUTE NEUTROPHILS 8.1 thou/uL (1.6-8.1); BASOPHILS 0.3 %; EOSINOPHILS 0.9 %; HEMATOCRIT 31.6 % (37.0-47.0); HEMOGLOBIN 10.6 gm/dL (12.0-15.0); LYMPHOCYTES 12.8 %; MCH 31.8 pg (26.0-34.0); MCHC 33.7 g/dL (28.0-37.0); MCV 94.3 fL (80.0-100.0); MONOCYTES 10.5 %; MPV 8.9 fl. (7.2-11.1); NUCLEATED RBCS 0 /100WBC; PLATELET COUNT* 228 thou/uL (150-400); POLYS 75.5 %; RBC 3.35 mil/uL (4.20-5.00); RDW-CV 13.4 % (10.5-14.5); WBC 10.7 thou/uL (4.0-11.0)
[2020-02-26 11:21] LABS: CALCIUM 8.8 mg/dL (8.5-10.1); CREATININE 0.9 mg/dL (0.6-1.3); POTASSIUM 3.7 mmol/L (3.5-5.1)
[2020-02-26 11:32] LABS: ALBUMIN 3.6 g/dL (3.4-5.0); PROTIME 10.2 Seconds (9.20-11.50); TOTAL BILIRUBIN 0.5 mg/dL (<0.1-1.0)
--- NOTE | 2020-02-26 13:58 | EKG ---
[place] [address] ELECTROCARDIOGRAM REPORT Name: JORDEN SARGENT Asael Room: [address]R.#: [id number] Admission: 02/26/20 Attend Phys: Roque Mckeon Discharge: Date of : 78 Date of Service: 02/26/20 1045 Report #: [id number] THIS REPORT FOR: //name// [facility] ED Test Date: 2020-02-26 Test Time: 10:45:15 Pat Name: JORDEN SARGENT Department: Room: [facility] Gender: F Director Of Cloud Services: [employer] : 1980 Requested By: Michelle Kern Order Number: [id number] MD: Soham Sheridan Measurements Intervals [place] Rate: 84 P: 41 [place]: 173 QRS: 20 QRSD: 96 T: 67 QT: 346 QTc: 409 Interpretive Statements Sinus rhythm Low voltage, precordial leads poor r wave progression Compared to ECG 02/24/2020 09:55:23 Sinus tachycardia no longer present Electronically Signed On 02-26-2020 13:58:21 RESPIRATORY CARE PRACTITIONER by Soham Sheridan [email or web address] <ELECTRONICALLY SIGNED> By: Soham Sheridan MD, [facility] 02/26/20 1358 1045 1045 Soham Sheridan MD, [facility] /EPI
[2020-02-26 17:00] VITALS: BP 88/52
--- NOTE | 2020-02-26 19:45 | NUR ---
DR SANTAMARIA NOTIFIED RE: CHEST PAIN--"O" NOTED
[2020-02-26 19:50] VITALS: BP 94/57
[2020-02-26 20:15] VITALS: BP 91/56
--- NOTE | 2020-02-26 20:15 | NUR ---
RECEIVED REPORT FROM ER AND PT TO ROOM. C/O CHEST PAIN, ESPECIALLY WITH DEEP BREATHING. DISCUSSED EFFUSIONS AND PNEUMONITIS. WILL GIVE IV PAIN MED. TELEMETRY APPLIED SHOWING SR. PT ANXIOUS AND AMBULATING AROUND ROOM. SEE ADMISSION HX AND ASSESSMENT. WILL CONT TO MONITOR AND ASSIST NEEDED.
[2020-02-27] VITALS: BP 81/52
[2020-02-27 04:00] VITALS: BP 94/69
--- NOTE | 2020-02-27 06:51 | NUR ---
PT SLEEPING SHORT PERIODS BUT WHEN AWAKE HAS MULTIPLE PAIN COMPLAINTS, MIGRAIN SOLITARIO, STIFF NECK, CHEST PAIN, GENERALIZED, RT ARM AND BACK ETC. SCHEDULED MEDS GIVEN AND EFFECTIVE. O2 ON AT 2L/NC. GAIT STEADY AROUND ROOM. TELEMETRY CONT TO SHOW SR. HS GOALS OF REST AND SAFETY ACHIEVED. HOURLY ROUNDING OBSERVED.
[2020-02-27 08:30] VITALS: BP 90/53
--- NOTE | 2020-02-27 09:13 | NUR ---
cm completed the initial assessment to discuss d/c planning. pt is a&o. pt lives at home w/spouse. pt is employeed, active and independent w/adls. pt drives a vehicle. pt has cpap, blood pressure cup. pt denies hx w/snf or hh. pt stated her goal "is not to be in px. one px to be at a five so I can still function. pt mentioned she is upset about the length of time it takes for nursing to respond to her call re: her px medication and the dosage of medication. cm will f/u with nursing and asked them to address/explain med management to pt. cm to cont to follow.
--- NOTE | 2020-02-27 11:12 | CON ---
[address] [address] CONSULTATION Name: JORDEN SARGENT Room: [address] ADM IN .R.#: [id number] Admission: 02/27/20 Attend Phys: Brian Acuña Discharge: Date of : 78 Report #: [id number] THIS REPORT FOR: //name// cc: Leora Tim Stefany RNP ~ DATE OF SERVICE: 02/26/2020 CARDIOLOGY CONSULTATION HISTORY OF PRESENT ILLNESS: The patient is a 40-year-old white female who I saw in the Emergency Room today after she complained of chest pain. The patient apparently had Kawasaki's disease when she was 14 years old, admitted to [facility]. She states she is on steroids at that time. She then presented this past September with a non-STEMI. She underwent cardiac catheterization by Dr. Reed and was found to have total occlusion of the circumflex artery. He then placed stents in her circumflex artery. He actually just saw her in November when she was doing well on dual antiplatelet therapy including Plavix. She notes for the past few days, she has had increasing shortness of breath. She also complained of chest pain. She actually came to the Emergency Room 2 days ago, was seen by Dr. Real. She complained of palpitations and increased metoprolol from 50 twice a day to 100 twice a day. However, she continues to have almost constant pain in her chest. She describes a sharp pain. It is not related to activity or meals. It is worse when she sits up. It is not related to food. She has had no fever or cough. She has been short of breath. She has had no edema. She notes her heart has been racing and she felt lightheaded. She came to the hospital today and was admitted for further evaluation and treatment. PAST MEDICAL HISTORY: Significant for hysterectomy. She has a history of ADD for which she takes Adderall. She has a history of migraine headaches, hyperlipidemia. No history of hypertension. MEDICATIONS: Include Elavil, Adderall, aspirin, Lipitor, BuSpar, Plavix, Flexeril, Valium, Cymbalta, Neurontin, Mobic, metoprolol, Seroquel, Flomax. ALLERGIES: She has no known drug allergies. FAMILY HISTORY: Negative for heart disease. SOCIAL HISTORY: She is . She and her live in [place]. 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 Quit smoking 2 years ago. She has a history of alcohol abuse, went through AA, no longer abuses alcohol. She does have a license for medical marijuana. No IV drug abuse. REVIEW OF SYSTEMS: She has had no history of stroke, asthma, liver disease, kidney disease, cancer, [place] [address] CONSULTATION Name: JORDEN SARGENT Room: [address] IN [facility]#: [id number] Admission: 02/27/20 Attend Phys: Brian Acuña Discharge: Date of : 78 Report #: [id number] PHYSICAL EXAMINATION: GENERAL: Revealed a young white female, lying in bed. She appeared in no acute distress. VITAL SIGNS: She had a blood pressure 100/70, pulse is 80, she is afebrile. HEENT: She was anicteric. Conjunctivae are pink. Mucous membranes moist. NECK: Veins do not appear distended. No carotid bruits. CHEST: Revealed coarse breath sounds at bases. CARDIOVASCULAR: Regular rate and rhythm. There is a rub noted. No murmur. ABDOMEN: Soft. EXTREMITIES: Had no edema. Posterior pulse 2+ bilaterally. SKIN: Cool and dry. NEUROLOGIC: Nonfocal. RADIOLOGICAL DATA: Her ECG showed a sinus rhythm, low voltage, no significant ST or T-wave change. Her workup in the Emergency Room today, she had a CT scan of the chest using a PE protocol 2 days ago that showed no pulmonary embolus, cardiomegaly, small pericardial effusion, atelectasis, coronary calcifications. Her chest x-ray today showed left effusion with atelectasis, cardiomegaly. LABORATORY DATA: Sodium 131, creatinine 0.9. SGOT 59, SGPT 86. Troponins all 0.06. Her TSH 1.8. White blood cell count 10.7, hemoglobin 10.6. IMPRESSION AND RECOMMENDATIONS: 1. Chest pain. Possibly related to pericarditis. The patient is scheduled for thoracentesis. Since it has now been 9 months since her stent placement, I think it is reasonable to hold Plavix for 5 days. 2. Previous stent. The patient is on aspirin and Plavix. 3. History of Kawasaki's disease. 4. Hyperlipidemia. The patient is on a statin drug. 5. Attention deficit disorder. The patient on Adderall and followed by Psychiatry. 6. History of migraine headaches. 7. Previous tobacco abuse. 8. History of alcohol abuse. <ELECTRONICALLY SIGNED> By: Soham Sheridan MD, [facility] 02/27/20 1112 1608 09Daken Sheridan MD, FACC /nt
[2020-02-27 11:15] VITALS: BP 109/74
[2020-02-27 14:02] LABS: BE -3.3 mmol/L (-2 to +3); PCO2 39.4 mmHg (35.0-45.0); pH 7.362 (7.340-7.450)
[2020-02-27 16:00] VITALS: BP 92/59
--- NOTE | 2020-02-27 18:57 | NUR ---
ADMISSION DOCUMENTED. MEDS GIVEN PER E-MAR. IV PATENT. PAIN AND NAUSEA MEDS GIVEN PER E-MAR. PT VERY DROWZY THIS SHIFT, UNABLE TO TELL ME WHATS GOING ON AND UNSURE WHAT TIME OF DAY IT IS. DR NOTIFIED, ORDERS RECIEVED. MED REC VERIFIED BY PHARMACY.
[2020-02-27 21:00] VITALS: BP 102/54
[2020-02-28 00:51] VITALS: BP 104/69
[2020-02-28 04:36] VITALS: BP 111/75
--- NOTE | 2020-02-28 05:07 | NUR ---
No acute event this shift. Pt complains of R shoulder pain and abdominal pain rated 6. Pain meds given per mar, pt report relief. Pt AOX4, forgetful. Sinus tach on tele. Pt on 2L. Pt NPO for possible thoracentesis. Reminded to use call light for assistance, will continue POC.
[2020-02-28 08:00] VITALS: BP 130/74
--- NOTE | 2020-02-28 10:15 | 2DMMODE ---
[place] [address] 2 D/M-MODE ECHOCARDIOGRAM Name: JORDEN SARGENT Asael Room: [address] IN .R.#: [id number] Admission: 02/27/20 Attend Phys: Roque Mckeon Discharge: Date of : 78 Date of Service: 02/27/20 1025 Report #: [id number] THIS REPORT FOR: cc: Leora Tim Stefany RNP Liston, Michael J. MD [facility] ~ APPROVED REPORT Study performed: 02/27/2020 09:22:50 EXAM: Comprehensive 2D, Doppler, and color-flow Echocardiogram Patient Location: Bedside BSA: 1.69 HR: 81 bpm BP: 94/69 mmHg Other Information Study Quality: Good Indications Pericardial Effusion 2D Dimensions IVSd: 8.94 (7-11mm) LVOT Diam: 18.71 (18-24mm) LVDd: 49.32 mm PWd: 8.11 (7-11mm) Ascending Ao: 27.14 (22-36mm) LVDs: 42.13 (25-40mm) Aortic Root: 36.27 mm Volumes Left Atrial Volume (Systole) LA ESV Index: 29.70 mL/m2 Aortic Valve AoV Peak Linwood.: 1.26 m/s AO Peak Gr.: 6.39 mmHg LVOT Max P.47 mmHg AO Mean Gr.: 3.66 mmHg LVOT Mean P.61 mmHg LVOT Max V: 0.93 m/s AO V2 VTI: 24.31 cm LVOT Mean V: 0.58 m/s THAIS (VTI): 1.92 cm2 LVOT V1 VTI: 16.97 cm Mitral Valve E/A Ratio: 1.00 [place] [address] 2 D/M-MODE ECHOCARDIOGRAM Name: JORDEN SARGENT Room: [address] IN ..#: [id number] Admission: 02/27/20 Attend Phys: Roque Mckeon Discharge: Date of : 78 Date of Service: 02/27/20 1025 Report #: [id number] MV Decel. Time: 161.61 ms MV E Max Linwood.: 0.95 m/s MV PHT: 46.87 ms MVA (PHT): 4.69 cm2 TDI E/Lateral E': 15.83 E/Medial E': 10.56 Medial E' Linwood.: 0.09 m/s Lateral E' Linwood.: 0.06 m/s Pulmonary Valve PV Peak Linwood.: 0.75 m/s PV Peak Gr.: 2.23 mmHg Tricuspid Valve RAP Estimate: 15.00 mmHg TR Peak Gr.: 23.90 mmHg RVSP: 38.90 mmHg PA Pressure: 38.90 mmHg Left Ventricle The left ventricle is normal size. The lateral wall is hypokinetic. There is normal left ventricular wall thickness. Left ventricular systolic function is mildly decreased. LVEF is 45-50%. Transmitral Doppler flow pattern suggests impaired LV relaxation. Right Ventricle The right ventricle is normal size. The right ventricular systolic function is normal. Atria The left atrium size is normal. The right atrium size is normal. Aortic Valve The aortic valve is normal in structure. No aortic regurgitation is present. There is no aortic valvular stenosis. Mitral Valve The mitral valve is normal in structure. Trace mitral regurgitation. No evidence of mitral valve stenosis. Tricuspid Valve The tricuspid valve is normal in structure. Trace tricuspid regurgitation. No pulmonary hypertension. Pulmonic Valve The pulmonary valve is normal in structure. Moderate [place] [address] 2 D/M-MODE ECHOCARDIOGRAM Name: JORDEN SARGENT Room: [address] IN [facility]#: [id number] Admission: 02/27/20 Attend Phys: Roque Mckeon Discharge: Date of : 78 Date of Service: 02/27/20 1025 Report #: [id number] regurgitation. Great Vessels The aortic root is normal in size. IVC is dilated. Pericardium A small to moderate sized mostly posterior pericardial effusion is noted. There is no evidence of hemodynamic compromise. Pleural effusion is present. <Conclusion> The left ventricle is normal size. There is normal left ventricular wall thickness. Left ventricular systolic function is mildly decreased. LVEF is 45-50%. Transmitral Doppler flow pattern suggests impaired LV relaxation. The lateral wall is hypokinetic. Trace mitral regurgitation. Trace tricuspid regurgitation. No pulmonary hypertension. A small to moderate sized mostly posterior pericardial effusion is noted. There is no evidence of hemodynamic compromise. Pleural effusion is present. <ELECTRONICALLY SIGNED> By: Uriel Real MD, FACC 02/27/20 1025 1025 1025 Uriel Real MD, FACC /INF
--- NOTE | 2020-02-28 11:36 | EKG ---
[place] [address] ELECTROCARDIOGRAM REPORT Name: SARGENTJORDEN Room: [address] ADM IN .R.#: [id number] Admission: 02/27/20 Attend Phys: Roque Mckeon Discharge: Date of : 78 Date of Service: 02/28/2007 Report #: [id number] THIS REPORT FOR: //name// [facility] Test Date: 2020-02-28 Test Time: 08:07:13 Pat Name: JORDEN SARGENT Department: Room: [address] Gender: F Window Framer: HARRIET : 1980 Requested By: Soham Sheridan Order Number: [id number] Ritesh MD: Soham Sheridan Measurements Intervals [place] Rate: 98 P: 55 CO: 180 QRS: 14 QRSD: 98 T: 35 QT: 349 QTc: 446 Interpretive Statements Sinus rhythm nonspecific t wave changes Low voltage, extremity leads Compared to ECG 02/26/2020 10:45:15 Poor R-wave progression no longer present Electronically Signed On 02-28-2020 11:36:21 SODA FLAKER by Soham Sheridan [email or web address] <ELECTRONICALLY SIGNED> By: Soham Sheridan MD, FACC 02/28/20 1136 0807 Soham Sheridan MD, [facility] /EPI
[2020-02-28 12:18] VITALS: BP 131/82
--- NOTE | 2020-02-28 12:26 | NUR ---
Anticipate dc in a few days. Thora. ?ivabx at dc. Pt on 2L o2, will need ex ox at dc if continues to require oxygen.
--- NOTE | 2020-02-28 12:58 | CON ---
[address] [address] CONSULTATION Name: JORDEN SARGENT Room: [address] IN M.R.#: [id number] Admission: 02/27/20 Attend Phys: Brian Acuña Discharge: Date of : 78 Report #: [id number] THIS REPORT FOR: //name// cc: Leora Tim Stefany RNP ~ DATE OF SERVICE: 02/27/2020 CONSULT REQUESTED BY: Dr. Mckeon. INDICATION FOR CONSULTATION: Chest pain. 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 The patient is a former smoker and does not have a previous diagnosis of COPD, who was admitted recently, was discharged and now is readmitted. She has been having chest pain, which was more towards the left side, some towards the right as well associated with respiration and coughing. She, however, does not have much local tenderness. She reports having had fever and chills as well as diaphoresis and nausea and vomiting. She has had a minor nasal discharge, at this time does not have sore throat. There is no swelling of lower extremities. There is no calf pain. The patient does report weakness as well as loss, night sweats and malaise, reports that she has had some recent weight gain, also says that she did recently have a sore throat, dizziness and headache. Does report wheezing and orthopnea at times, has had palpitations, has had both diarrhea and constipation, irregular bowel habits, some back pain, anxiety and depression, has had excessive sweating. REVIEW OF SYSTEMS: For 14 points is negative except as mentioned above. PAST MEDICAL HISTORY: Coronary artery disease, status post stents, last echo shows a normal left ventricular ejection fraction without right heart pressure elevation. Recent CTA chest is negative for PE, does show infiltrates, more on the left lung base with minimal pleural effusion on the left side. There is also a pericardial effusion, anxiety, depression, hysterectomy, herniated and bulging disks on C-spine, pelvic floor dysfunction, migraines, interstitial cystitis, hysterectomy, irritable bowel syndrome. The patient is noted to be on Plavix at home. SOCIAL HISTORY: More than a pack a day for more than 20 years, discontinued 3 or 4 years ago, also has used marijuana. The patient reports very heavy alcohol use in the past, now discontinued. No other known illegal drug use. FAMILY HISTORY: There is no pertinent family history. ALLERGIES: [place] [address] CONSULTATION Name: JORDEN SARGENT Asael Room: [address] IN ..#: [id number] Admission: 02/27/20 Attend Phys: Brian Acuña Discharge: Date of : 78 Report #: [id number] PHYSICAL EXAMINATION: GENERAL: She was drowsy, but fully arousable. VITAL SIGNS: Has a pulse of 81 and a blood pressure of 108/74. She was febrile with a temperature of 38.1. She has been saturating in the low 90s on 2 liters oxygen via nasal cannula, respiratory rate is 16-18. HEENT: Head is normocephalic and atraumatic. Pupils are equal and reactive. There is no throat erythema. NECK: Does not show raised JVP, asymmetry, mass or lymph nodes. CHEST: Symmetrical expansion on inspection and palpation. On auscultation, breath sounds are mildly decreased. I do not hear any added sounds. There is no rash over the stated site of pain on the left side. There is no tenderness. HEART: Regular. There is no murmur. ABDOMEN: Soft and nontender. EXTREMITIES: Lower extremities show no edema, no calf tenderness. SKIN: Dry and intact. NEUROLOGICAL: Moves all extremities bilaterally equally and spontaneously with no focal deficit identified. LABORATORY DATA: The patient's lab work as well as a chest x-ray now as well as a CT chest recent in [facility] reviewed. ASSESSMENT AND PLAN: 1. Pleuritic chest pain. The patient appears to have community-acquired pneumonia, leading to pleuritic chest pain. 2. Pulmonary infiltrates/community-acquired pneumonia. The patient is on Zithromax as well as ceftriaxone. We will continue with the same, increase the Zithromax dose, will do a CT chest and assess further as to whether antibiotics should be broadened. More cultures and serologies are ordered. 3. Pleural effusion. There is a trace pleural effusion on the left side on the last CTA chest, this will be high risk to tap especially because the patient is on Plavix and therefore pending review of the CT I requested holding off on thoracentesis. Certainly, the same could be considered if there is a significant increase in the size of the pleural effusion. We will review CT and then advice. 4. Pleuritic chest pain in addition to antibiotics as above. This is likely to respond symptomatically to steroids and the same are ordered. 5. Pericardial effusion/evaluation for thromboembolic phenomenon. There is no PE on the last CT. The patient's D-dimer has increased since then. Overall, my suspicion is low. The patient says that previously she has had a problem with her IV is blowing with IV dye. Therefore, for now, I ordered a CT chest without contrast. We will see the echo. If there is significant change in right heart pressures we certainly could repeat a CTA chest later. Also, we will defer to the Cardiology Service regarding whether there is a component of pericarditis present as well. 6. Coronary artery disease, status post recent stents. She is on Plavix, currently on hold with a consent from Cardiology [place] [address] CONSULTATION Name: JORDEN SARGENT Room: [address] IN [facility]#: [id number] Admission: 02/27/20 Attend Phys: Brian Acuña Discharge: Date of : 78 Report #: [id number] a thoracentesis is needed. 7. History of Kawasaki disease. 8. ADHD, on Adderall at home. 9. Past history of smoking, not actively bronchospastic. I still will give her albuterol. I am giving her steroids more to treat her pleuritic chest pain as above. <ELECTRONICALLY SIGNED> By: Thai Betancourt MD 02/28/20 1258 1404 [id number] Betancourt MD /nt
[2020-02-28 16:32] VITALS: BP 141/96
[2020-02-28 19:35] VITALS: BP 123/82
[2020-02-29] VITALS: BP 120/96
[2020-02-29 04:00] VITALS: BP 144/93
--- NOTE | 2020-02-29 04:18 | NUR ---
ASSUMED CARE OF PT AT 1900. PT IS ALERT AND ORIENTED. VSS. PERRLA. PT REPORTS ONGOING PAIN AND SOA. PT GETTING IV PAIN MEDS. PT IS IN SINUS RYTHM ON THE TELEMETRY. PT IS RESTING COMFORTABLY IN BED. RESPIRATIONS ARE EVEN AND NONLABORED. WILL CONTINUE TO MONITOR PT.
[2020-02-29 05:09] LABS: HEMOGLOBIN 8.9 gm/dL (12.0-15.0); MCH 31.9 pg (26.0-34.0); MCHC 34.1 g/dL (28.0-37.0); MCV 93.6 fL (80.0-100.0); MPV 9.4 fl. (7.2-11.1); NUCLEATED RBCS 0 /100WBC; PLATELET COUNT* 234 thou/uL (150-400); RBC 2.77 mil/uL (4.20-5.00); RDW-CV 13.7 % (10.5-14.5)
[2020-02-29 05:39] LABS: ALBUMIN 2.9 g/dL (3.4-5.0); CALCIUM 8.4 mg/dL (8.5-10.1); CREATININE 0.8 mg/dL (0.6-1.3); MAGNESIUM 2.3 mg/dL (1.8-2.4); POTASSIUM 3.3 mmol/L (3.5-5.1); TOTAL BILIRUBIN 0.2 mg/dL (<0.1-1.0); TOTAL PROTEIN 6.6 g/dL (6.4-8.2)
[2020-02-29 07:20] LABS: ABSOLUTE LYMPHOCYTES 0.8 thou/uL (0.8-5.3); ABSOLUTE MONOCYTES 0.3 thou/uL (0.0-1.2); ABSOLUTE NEUTROPHILS 9.9 thou/uL (1.6-8.1); PLATELET ESTIMATE ADEQUATE
[2020-02-29 07:21] LABS: ANISOCYTOSIS 1+; POIKILOCYTOSIS 1+
[2020-02-29 08:00] VITALS: BP 135/92
[2020-02-29 11:30] VITALS: BP 146/88
--- NOTE | 2020-02-29 12:22 | NUR ---
Anticipate dc tomorrow. Neuro consult, Pt reports having hallucinations.
[2020-02-29 18:41] VITALS: BP 136/96
[2020-02-29 19:35] VITALS: BP 157/102
[2020-03-01 00:30] VITALS: BP 120/80
--- NOTE | 2020-03-01 03:23 | NUR ---
ASSUMED CARE OF PT AT 1900. PT IS ALERT AND ORIENTED. VSS. PERRLA. PT REPORTS ONGOING PAIN. NO COMPLAINTS OF HALLUCINATIONS. PT IS IN SINUS RYTHM ON THE TELEMETRY. PT IS RESTING COMFORTABLY IN BED. RESPIRATIONS ARE EVEN AND NONLABORED. WILL CONTINUE TO MONITOR PT.
[2020-03-01 08:17] VITALS: BP 124/90
[2020-03-01] MEDS ORDERED: LEVSIN0.125 MG PO (09:26)
[2020-03-01] MEDS ORDERED: COLCHICINE0.6 MG PO (10:08)
[2020-03-01] MEDS ORDERED: METOPROLOL TART25 MG PO (10:08)
--- NOTE | 2020-03-01 10:56 | NUR ---
ASSUMED CARE OF PT THIS AM AROUND 0715- LICENSED FUNERAL DIRECTOR AND EMBALMER IN PLACE ORDERED, TRACING SR- UPON ASSESSMENT PT NOTED TO BE RESTING IN BED-UPON ASSESSMENT PT CONVERSATIONAL, BUT HAVING HARD TIME OPENING EYES- PT A&O X4- CONT OF B/B- UP AD-MICHELE IN ROOM, STEADY GAIT NOTED- LCTA, RESP EVEN AND UN-LABORED- VSS, O2 SAT 100% ON RA- ABD SOFT/ROUND/NON-TENDER, BS X4 QUADS- LAST BM REPORTED X3 DAYS AGO- PRN COLACE GIVEN THIS AM PER PT REQUEST- IV NOTED TO LEFT FA INTACT AND SL, IV ABT GIVEN THIS AM PRESCRIBED- GOOD PO INTAKE NOTED THIS AM WITH BREAKFAST- PT REPORTS PAIN 11/02 TO ABD WITH CHEST PRESSURE- SCHEDULEDTORADOL GIVEN THIS AM- CALL LIGHT AND PERSONAL BELONGINGS WITH IN REACH- ALL NEEDS MET AT THIS TIME-WCTM
--- NOTE | 2020-03-01 11:17 | NUR ---
Anticipate dc to home today. Pt anxious about dc, but is medically stable. Tele psych completed yesterday.
[2020-03-01] MEDS ORDERED: CEFDINIR300 MG PO (11:26)
[2020-03-01 11:30] VITALS: BP 112/82
[2020-03-01 11:36] VITALS: BP 124/90
[2020-03-01 14:07] LABS: ANTI-DNA SCREEN <1 IU/mL (0-9); ANTI-RNP <0.2 AI (0.0-0.9)
[2020-03-01 15:00] VITALS: BP 124/90
--- NOTE | 2020-03-03 12:47 | CON ---
[address] [address] CONSULTATION Name: JORDEN SARGENT Room: [address] IN M.R.#: [id number] Admission: 02/27/20 Attend Phys: Brian Acuña Discharge: 03/01/20 Date of : 78 Report #: [id number] THIS REPORT FOR: //name// cc: Leora Tim Stefany RNP ~ DATE OF SERVICE: 02/29/2020 HISTORY OF PRESENT ILLNESS: This is a 40-year-old female patient who was evaluated by me for her migraines. I first tried to see this patient. The patient was getting ultrasound done. She was irritable and upset. She wanted me to talk to her spouse. I talked to her. She gave a history, but I told the patient I need to talk to her. She got even more upset, saying that nobody come back to talk to her and I told her that I promised that I will come back and she should get the testing done. I came back at that time, she was more pleasant and she did give some history and she said she had migraine for as long as she can remember. She has her own neurologist at [facility]. They have done imaging studies on her brain. She even had a CT scan here in January. She had MRI done in this institution about 15 years ago. In fact, I had ordered that. She is concerned with Kawasaki disease. She is concerned with that, she is having autoimmune disorder. She started telling me what Kawasaki disease is and what things occur with it. She said she has to tell me because she tells every physician because the cone operator did not diagnose her for a long time because it is a rare disease. She does have psychiatric issues. When I saw this patient, she was going to be seen by psychiatrist also. As far as migraine headache is concerned, she says calcitonin injection, she does not like because it is too expensive. She said the Botox shots has worked very well for her. She also complained of some neck problem. She has been to multiple physicians and she has also been to chiropractor and reinforcing iron worker helper. She had a history of migraine, Kawasaki kidney disease. She had one stent put in according to her. When I asked her about atherosclerotic disease or the cause of her coronary disease, she again started telling me about Kawasaki disease and how ignorant everybody is about that because it is a rare disease. She does have a history of anxiety and depression. As mentioned above, she was going to be seen by psychiatrist in that regard. REVIEW OF SYSTEMS: As described above. PAST MEDICAL HISTORY: Positive for Kawasaki disease. FAMILY HISTORY: Unremarkable. SOCIAL HISTORY: I did not ask, but the records indicate she has history of smoking, [place] [address] CONSULTATION Name: JORDEN SARGENT Asael Room: [address] IN .R.#: [id number] Admission: 02/27/20 Attend Phys: Brian Acuña Discharge: 03/01/20 Date of : 78 Report #: [id number] PHYSICAL EXAMINATION: NEUROLOGIC: Indicates she is alert. She is responsive. She can follow simple command. Her cranial nerve examinations appear unremarkable. Second time when I came in, she was pretty calm. Sometime she said she has little difference sensation on the left side, but she can feel it. Neuromuscular examination is otherwise symmetrical. There is no meningeal sign. There is no carotid bruit. VITAL SIGNS: Indicate a blood pressure of 136/96, respirations 16, pulse is 99, temperature is 98. LABORATORY DATA: White count was 11. IMPRESSION: This patient has a longstanding symptoms of migraine and multiple other problems. Nothing acutely, I have changed the best I can tell. I think the best for her will be to follow up with her own neurologist because they have the record. I will talk to you about this patient tomorrow, but I discussed that option with her, she is agreeable with that option and that is probably the best option in this kind of complex case that she should see a neurologist as soon as possible. If more acute symptoms occur, please let us know and will be happy to follow up. Thank you very much for this referral. <ELECTRONICALLY SIGNED> By: Andres Anna MD 03/03/20 1247 1854 [id number] Anna MD /nt
== END 2020-03-01 15:00 | disposition home or self-care (01) | DRG 177 ==
LOC: M.ERS 10:36 → M.TBA-ER 13:02 → M.2W 20:37
PROVIDERS: Internal Medicine Critical Care Medicine; Personal Emergency Response Attendant; ADMIT Internal Medicine; ATTEND Internal Medicine
DX: J15.6 Pneumonia due to other Gram-negative bacteria (principal); I50.23 Acute on chronic systolic (congestive) heart failure; I30.9 Acute pericarditis, unspecified; I25.10 Atherosclerotic heart disease of native coronary artery without angina pectoris; F41.9 Anxiety disorder, unspecified; M54.9 Dorsalgia, unspecified; N28.89 Other specified disorders of kidney and ureter; G47.33 Obstructive sleep apnea (adult) (pediatric); D64.9 Anemia, unspecified; F32.9 Major depressive disorder, single episode, unspecified; E78.5 Hyperlipidemia, unspecified; F10.11 Alcohol abuse, in remission; F98.8 Other specified behavioral and emotional disorders with onset usually occurring in childhood and adolescence; K58.9 Irritable bowel syndrome, unspecified; R07.89 Other chest pain; G43.909 Migraine, unspecified, not intractable, without status migrainosus; Z20.828 Contact with and (suspected) exposure to other viral communicable diseases; Z79.82 Long term (current) use of aspirin; Z79.01 Long term (current) use of anticoagulants; Z79.899 Other long term (current) drug therapy; Z90.710 Acquired absence of both cervix and uterus; Z95.5 Presence of coronary angioplasty implant and graft; Z87.891 Personal history of nicotine dependence

== ENCOUNTER 2020-03-20 14:57 | Inpatient (IN) | payer OTHER ==
[~2020-03-20] VITALS: Ht 160 cm; Wt 69.6 kg
[~2020-03-20 14:57] MED LIST changes: +CEFDINIR300 MG PO; +COLCHICINE0.6 MG PO; +LEVSIN0.125 MG PO
[2020-03-20 15:00] VITALS: BP 118/79
[2020-03-20] MEDS ORDERED: VICODIN HP 10-1 EAC1 PO (15:06)
[2020-03-20 16:44] LABS: INFLUENZA A ANTIGEN Negative (Negative); INFLUENZA B ANTIGEN Negative (Negative)
[2020-03-20 17:05] LABS: ABSOLUTE BASOPHILS 0.1 thou/uL (0.0-0.2); ABSOLUTE EOSINOPHILS 0.1 thou/uL (0.0-0.7); ABSOLUTE LYMPHOCYTES 2.4 thou/uL (0.8-5.3); ABSOLUTE MONOCYTES 0.9 thou/uL (0.0-1.2); ABSOLUTE NEUTROPHILS 8.3 thou/uL (1.6-8.1); BASOPHILS 0.7 %; EOSINOPHILS 0.9 %; HEMATOCRIT 37.2 % (37.0-47.0); HEMOGLOBIN 12.2 gm/dL (12.0-15.0); LYMPHOCYTES 20.1 %; MCH 30.4 pg (26.0-34.0); MCHC 32.7 g/dL (28.0-37.0); MCV 92.8 fL (80.0-100.0); MONOCYTES 7.9 %; NUCLEATED RBCS 0 /100WBC; PLATELET COUNT* 288 thou/uL (150-400); POLYS 70.4 %; RBC 4.01 mil/uL (4.20-5.00); RDW-CV 14.4 % (10.5-14.5); WBC 11.8 thou/uL (4.0-11.0)
[2020-03-20 17:18] LABS: CALCIUM 9.6 mg/dL (8.5-10.1); POTASSIUM 3.5 mmol/L (3.5-5.1)
[2020-03-20 17:23] LABS: APTT 28.2 Seconds (25.0-31.3); PROTIME 10.4 Seconds (9.20-11.50)
[2020-03-20 17:24] LABS: ALBUMIN 3.8 g/dL (3.4-5.0); MAGNESIUM 1.9 mg/dL (1.8-2.4); TOTAL BILIRUBIN 0.3 mg/dL (<0.1-1.0); TOTAL PROTEIN 8.3 g/dL (6.4-8.2)
[2020-03-20 22:45] VITALS: BP 118/85
[2020-03-20 23:30] VITALS: BP 114/87
[2020-03-21 04:00] VITALS: BP 93/66
[2020-03-21 07:20] VITALS: BP 88/81
[2020-03-21 11:00] VITALS: BP 88/51
[2020-03-21 16:00] VITALS: BP 101/59
[2020-03-21 20:00] VITALS: BP 95/63
[2020-03-22] VITALS: BP 99/65
[2020-03-22 04:00] VITALS: BP 119/75
[2020-03-22 04:14] LABS: MCH 31.3 pg (26.0-34.0); MCHC 34.2 g/dL (28.0-37.0); MCV 91.5 fL (80.0-100.0); MPV 9.2 fl. (7.2-11.1); RBC 3.06 mil/uL (4.20-5.00); RDW-CV 14.4 % (10.5-14.5); WBC 5.8 thou/uL (4.0-11.0)
[2020-03-22 04:29] LABS: HEMOGLOBIN 9.6 gm/dL (12.0-15.0)
[2020-03-22 04:39] LABS: ALBUMIN 2.8 g/dL (3.4-5.0); CALCIUM 8.5 mg/dL (8.5-10.1); CREATININE 0.8 mg/dL (0.6-1.3); POTASSIUM 3.3 mmol/L (3.5-5.1); TOTAL BILIRUBIN 0.4 mg/dL (<0.1-1.0); TOTAL PROTEIN 6.5 g/dL (6.4-8.2)
[2020-03-22 08:00] VITALS: BP 106/73
--- NOTE | 2020-03-22 10:32 | CON ---
[address] [address] CONSULTATION Name: JORDEN SARGENT Room: [address] IN M.R.#: [id number] Admission: 03/20/20 Attend Phys: Vineet Hawkins MD Discharge: Date of : 78 Report #: [id number] THIS REPORT FOR: //name// cc: Leora Tim Stefany RNP ~ DATE OF SERVICE: 03/22/2020 CARDIOLOGY CONSULTATION HISTORY OF PRESENT ILLNESS: The patient is a 40-year-old white female who I was asked to see in the hospital today after she complained of chest pain. The patient apparently had Kawasaki's disease when she was 14 years old and was admitted to [facility]. She apparently was treated with steroids at that time. She apparently did see a belt cutter. She required no further workup at that time. She then presented this 09/2019 with chest pain. She ruled in for non-STEMI. She was seen by my partner, Dr. Vincent Reed. She underwent a cardiac catheterization and was found to have total occlusion of the circumflex artery. Dr. Reed did not attempt stenting of the circumflex at that time. However, because of persistent chest pain, he took her back to the cardiac catheterization lab approximately 4 days later and put stents in the diagonal artery. She was then placed on Plavix. She was discharged on metoprolol and Lipitor. She was then readmitted at the end of January with increasing shortness of breath and chest pain. She complained of her heart racing and Dr. Real increased metoprolol to 100 mg twice a day. When she was admitted to the hospital at the end of January, CT scan showed no pulmonary embolus, cardiomegaly, small pericardial effusion. Chest x-ray showed atelectasis. She underwent an echocardiogram on 02/27/2020 that showed a moderate-sized pericardial effusion, ejection fraction 50%. She ruled out for myocardial infarction. She was noted to have a pericardial rub and she was felt to have pericarditis. She was then placed on colchicine. She was felt to have pneumonia and was discharged on antibiotics. She initially said her chest pain and shortness of breath improved. She actually returned to see my nurse practitioner a couple of weeks ago. She is not very active at this time. However, recently, she has had increasing shortness of breath. She has had a cough, but denied any edema or fever. She denied any exposure to COVID-19. She also noticed recurrent sharp chest pain. It is worse when she takes a deep breath. It is also worse when she lies down. It is a constant, sharp chest pain. It goes into her shoulders. She denies any significant palpitations, syncope, or lightheadedness. She called her primary care provider and was told to come to the Emergency Room 2 days ago. She was admitted for further evaluation and treatment. She denied any noncompliance. PAST MEDICAL HISTORY: Otherwise significant for hysterectomy. She has a history of ADD and takes Adderall. She has a history [place] [address] CONSULTATION Name: JORDEN SARGENT Room: [address] IN [facility]#: [id number] Admission: 03/20/20 Attend Phys: Vineet Hawkins MD Discharge: Date of : 78 Report #: [id number] is worse during her . She has hyperlipidemia. No history of hypertension or diabetes. She did have 1 in the past and delivered years ago. CURRENT MEDICATIONS: Consist of Elavil, Adderall, aspirin, Lipitor, BuSpar, Plavix, Flexeril, Valium, Cymbalta, Neurontin, Mobic, metoprolol, Seroquel, and Flomax. ALLERGIES: She has no known drug allergies. FAMILY HISTORY: Negative for heart disease. SOCIAL HISTORY: She has a female labor expediter she lives with. 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 She quit smoking 2 years ago, has a history of alcohol abuse. She now drinks alcohol rarely. She has a license for medical marijuana. No IV drug abuse. REVIEW OF SYSTEMS: No history of stroke, asthma, liver disease, kidney disease, cancer or chronic skin condition. PHYSICAL EXAMINATION: GENERAL: Revealed a young white male, lying in bed. She appeared in no acute distress. VITAL SIGNS: She had a blood pressure of 100/60, pulse is 100, temperature yesterday was 101. HEENT: She was anicteric. Conjunctivae are pink. Mucous membranes moist. NECK: Veins do not appear distended. CHEST: Clear to auscultation. CARDIOVASCULAR: Regular, tachycardia. No significant rub or murmur. ABDOMEN: Soft. EXTREMITIES: Had no edema. Posterior tibial pulse 2+ bilaterally. SKIN: Cool and dry. NEUROLOGIC: Nonfocal. LYMPH: No adenopathy. MUSCULOSKELETAL: No joint effusion. RADIOLOGICAL DATA: Her ECG on admission showed sinus tachycardia, nonspecific T-wave changes. On her workup in the Emergency Room, she had a carotid Doppler study performed because of confusion that showed no significant stenosis. Her chest x-ray on admission showed left basilar infiltrate with a small effusion. She had a CT scan of the chest using a PE protocol, suggesting no pulmonary embolus, cardiomegaly, moderate pericardial effusion, which was unchanged, small left effusion, small right effusion, no adenopathy, some atelectasis, infiltrate in the left base. [facility] [address] [place] [address] CONSULTATION Name: JORDEN SARGENT Room: [address] IN R.#: [id number] Admission: 03/20/20 Attend Phys: Vineet Hawkins MD Discharge: Date of : 78 Report #: [id number] LABORATORY WORK: Sodium 134, potassium 3.3, BUN 10, creatinine 0.8, albumin 2.8. Troponins all 0.06. In November, her cholesterol 188, triglyceride 92, HDL 59, LDL 111. Her TSH earlier this month was 1.0. Her white blood cell count 5.8, hemoglobin 9.6, it was 9.7 in August, her MARIELENA was less than 1. Rheumatoid factor less than 10. Her COVID antigen stat test was not detected. IMPRESSION AND RECOMMENDATIONS: 1. Moderate-sized pericardial effusion. No evidence of tamponade. I would continue colchicine. 2. Pneumonia. The patient in on antibiotics. 3. Anemia. No history of bleeding. 4. History of sleep apnea. 5. Attention deficit disorder. The patient is on Haldol. 6. Stent placement in August. I would continue Plavix. I would not recommend stress testing at this time. 7. History of Kawasaki's disease as a teenager. 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 8. Previous tobacco abuse. 9. History of alcohol abuse. 10. History of illicit drug use. 11. History of migraine headaches. <ELECTRONICALLY SIGNED> By: Soham Sheridan MD, FACC 03/22/20 1032 0923Davirosa Sheridan MD, FACC /nt
[2020-03-22 11:39] VITALS: BP 111/74
[2020-03-22 16:14] VITALS: BP 103/66
[2020-03-22 20:00] VITALS: BP 112/75
[2020-03-23] VITALS: BP 110/74
[2020-03-23 04:13] VITALS: BP 115/77
[2020-03-23 05:05] LABS: CHOLESTEROL 127 mg/dL (<200); HDL CHOLESTEROL 25 mg/dL (>40); LDL CHOLESTEROL 89 mg/dL (<100); TC:HDL 5.1 Ratio (Not establshd); TRIGLYCERIDE 65 mg/dL (<150); VLDL 13 mg/dL (<40)
[2020-03-23 05:07] LABS: SERUM ASSESSMENT Clear
[2020-03-23 11:09] VITALS: BP 123/86
[2020-03-23 11:49] VITALS: BP 114/81
--- NOTE | 2020-03-24 11:54 | EKG ---
[place] [address] ELECTROCARDIOGRAM REPORT Name: ROSETTAJORDEN Room: [address] [facility]#: [id number] Admission: 03/20/20 Attend Phys: Vineet Hawkins, Discharge: 03/23/20 Date of : 78 Date of Service: 03/20/20 1500 Report #: [id number] THIS REPORT FOR: //name// 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1980 Requested By: Larry Jeter Order Number: [id number] MD: Soham Sheridan Measurements Intervals [place] Rate: 115 P: 42 VT: 171 QRS: 6 QRSD: 100 T: 124 QT: 303 QTc: 419 Interpretive Statements Sinus tachycardia Probable left atrial enlargement Low voltage, precordial leads Abnormal T, consider ischemia, lateral leads Compared to ECG 02/28/2020 08:07:13 Possible ischemia now present ST (T wave) deviation now present Sinus rhythm no longer present T-wave abnormality still present Electronically Signed On 03-24-2020 11:54:25 FITNESS INSTRUCTOR by Soham Sheridan [email or web address] <ELECTRONICALLY SIGNED> By: Soham Sheridan MD, [facility] 03/24/20 1154 1500 1500 Soham Sheridan MD, [facility] /EPI
== END 2020-03-23 16:31 | disposition short-term general hospital (02) | DRG 871 ==
LOC: M.ERS 14:57 → M.TBA-ER 18:58 → M.2W 18:58
PROVIDERS: Emergency Medicine Emergency Medical Services; Internal Medicine Cardiovascular Disease; ADMIT Internal Medicine; ATTEND Internal Medicine
DX: A41.9 Sepsis, unspecified organism (principal); J15.6 Pneumonia due to other Gram-negative bacteria; I50.22 Chronic systolic (congestive) heart failure; I31.3 Pericardial effusion (noninflammatory); G43.909 Migraine, unspecified, not intractable, without status migrainosus; I25.10 Atherosclerotic heart disease of native coronary artery without angina pectoris; F41.9 Anxiety disorder, unspecified; F32.9 Major depressive disorder, single episode, unspecified; K58.9 Irritable bowel syndrome, unspecified; E78.5 Hyperlipidemia, unspecified; D64.9 Anemia, unspecified; G47.30 Sleep apnea, unspecified; F98.8 Other specified behavioral and emotional disorders with onset usually occurring in childhood and adolescence; Z20.828 Contact with and (suspected) exposure to other viral communicable diseases; Z95.5 Presence of coronary angioplasty implant and graft; Z87.891 Personal history of nicotine dependence; Z90.710 Acquired absence of both cervix and uterus; Z79.01 Long term (current) use of anticoagulants; Z79.899 Other long term (current) drug therapy

== ENCOUNTER → 2020-04-23 | Outpatient (CLI) | payer OTHER ==
[~2020-04-23] MED LIST changes: +VICODIN HP 10-1 EAC1 PO
[2020-04-23 12:15] LABS: CHOLESTEROL 237 mg/dL (<200); HDL CHOLESTEROL 60 mg/dL (>40); LDL CHOLESTEROL 150 mg/dL (<100); TRIGLYCERIDE 139 mg/dL (<150); VLDL 28 mg/dL (<40)
[2020-04-23 12:16] LABS: SERUM ASSESSMENT Clear
== END ==
LOC: M.LAB 11:32
PROVIDERS: ATTEND Nurse Practitioner Family
DX: E78.5 Hyperlipidemia, unspecified (principal)

== ENCOUNTER 2021-03-29 02:39 | Inpatient (IN) | payer OTHER ==
[2021-03-29] VITALS (21 sets, daily range): BP systolic 88–154; BP diastolic 58–89
[~2021-03-29] VITALS: Ht 157.5 cm; Wt 68.0 kg
[2021-03-29 03:29] LABS: ABSOLUTE EOSINOPHILS 0.1 thou/uL (0.0-0.7); ABSOLUTE LYMPHOCYTES 2.2 thou/uL (0.8-5.3); ABSOLUTE MONOCYTES 0.4 thou/uL (0.0-1.2); ABSOLUTE NEUTROPHILS 1.7 thou/uL (1.6-8.1); BASOPHILS 0.9 %; EOSINOPHILS 2.3 %; HEMATOCRIT 32.5 % (37.0-47.0); HEMOGLOBIN 11.2 gm/dL (12.0-15.0); LYMPHOCYTES 49.7 %; MCH 32.3 pg (26.0-34.0); MCHC 34.5 g/dL (28.0-37.0); MCV 93.7 fL (80.0-100.0); MONOCYTES 9.5 %; MPV 8.5 fl. (7.2-11.1); NUCLEATED RBCS 0 /100WBC; PLATELET COUNT* 232 thou/uL (150-400); POLYS 37.6 %; RBC 3.47 mil/uL (4.20-5.00); WBC 4.4 thou/uL (4.0-11.0)
[2021-03-29 03:45] LABS: CALCIUM 8.4 mg/dL (8.5-10.1); CREATININE 0.8 mg/dL (0.6-1.3); POTASSIUM 3.7 mmol/L (3.5-5.1)
[2021-03-29 03:54] LABS: URINE BILIRUBIN NEGATIVE (Negative); URINE BLOOD NEGATIVE (Negative); URINE CLARITY CLEAR; URINE COLOR STRAW; URINE GLUCOSE-RANDOM NEGATIVE (Negative); URINE KETONES NEGATIVE (Negative); URINE LEUKOCYTES-REFLEX NEGATIVE (Negative); URINE NITRITE-REFLEX NEGATIVE (Negative); URINE PROTEIN NEGATIVE (Negative); URINE SPECIFIC GRAVITY <= 1.005 (1.005-1.030); URINE UROBILINOGEN 0.2 E.U./dl (0.2-1.0)
[2021-03-29 03:57] LABS: ALBUMIN 3.8 g/dL (3.4-5.0); TOTAL BILIRUBIN 0.3 mg/dL (<0.1-1.0); TOTAL PROTEIN 6.6 g/dL (6.4-8.2)
[2021-03-29 03:58] LABS: SALICYLATE < 2.8 mg/dL (2.8-20.0)
[2021-03-29 03:59] LABS: ACETAMINOPHEN < 2 ug/mL (10-30)
[2021-03-29 04:10] LABS: BE 0.4 mmol/L (-2 to +3); PCO2 33.8 mmHg (35.0-45.0); pH 7.464 (7.340-7.450)
[2021-03-29 04:38] LABS: AMP/METHAMP Negative (Negative); BARBITURATES Negative (Negative); BENZODIAZEPINES POSITIVE (Negative); COCAINE Negative (Negative); METHADONE Negative (Negative); OPIATES Negative (Negative); PCP Negative (Negative); THC POSITIVE (Negative)
[2021-03-29] MEDS ORDERED: INDOMETHACIN20 MG PO (04:45)
[2021-03-29] MEDS ORDERED: VALIUM10 MG PO (04:46)
[2021-03-29] MEDS ORDERED: ADDERALL 20 MG20 MG PO (04:47)
[2021-03-29] MEDS ORDERED: [UNRECOGNIZED DRUG - OTHER] (04:48)
--- NOTE | 2021-03-29 15:24 | EKG ---
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1980 Requested By: Rosanne Rosa Order Number: [id number] MD: Uriel Real Measurements Intervals [place] Rate: 69 P: 4 ND: 185 QRS: -15 QRSD: 129 T: 42 QT: 421 QTc: 451 Interpretive Statements Sinus rhythm Nonspecific intraventricular conduction delay Compared to ECG 03/20/2020 15:00:59 Intraventricular conduction delay now present Sinus tachycardia no longer present T-wave abnormality no longer present Possible ischemia no longer present Electronically Signed On 03-29-2021 15:24:08 RODENT EXTERMINATOR by Uriel Real [email or web address] <ELECTRONICALLY SIGNED> By: Uriel Real MD, FACC 03/29/21 1524 3 3 Uriel Real MD, FACC /EPI
[2021-03-30] VITALS (24 sets, daily range): BP systolic 94–139; BP diastolic 62–97
[2021-03-30 01:49] LABS: CALCIUM 6.7 mg/dL (8.5-10.1); CREATININE 0.7 mg/dL (0.6-1.3); MAGNESIUM 1.7 mg/dL (1.8-2.4); PHOSPHORUS* 1.7 mg/dL (2.5-4.9); POTASSIUM 3.2 mmol/L (3.5-5.1)
[2021-03-30 20:20] LABS: ALBUMIN 3.6 g/dL (3.4-5.0); CALCIUM 8.2 mg/dL (8.5-10.1); CREATININE 0.7 mg/dL (0.6-1.3); TOTAL BILIRUBIN 0.3 mg/dL (<0.1-1.0); TOTAL PROTEIN 6.8 g/dL (6.4-8.2)
[2021-03-31] VITALS (18 sets, daily range): BP systolic 102–147; BP diastolic 45–97
== END 2021-03-31 16:40 | DRG 917 ==
LOC: M.ERS 02:39 → M.ICU 04:53 → M.TBA-ER 04:53 → M.ICU 11:52
PROVIDERS: Emergency Medicine; Internal Medicine; ADMIT Internal Medicine; ATTEND Internal Medicine
PROC: 0BH17EZ Insertion of Endotracheal Airway into Trachea, Via Natural or Artificial Opening (ICD-10-PCS; principal; 2021-03-29)
PROC: 5A1945Z Respiratory Ventilation, 24-96 Consecutive Hours (ICD-10-PCS; principal; 2021-03-29)
DX: T42.4X1A Poisoning by benzodiazepines, accidental (unintentional), initial encounter (principal); G93.41 Metabolic encephalopathy; J96.01 Acute respiratory failure with hypoxia; R45.851 Suicidal ideations; T51.0X1A Toxic effect of ethanol, accidental (unintentional), initial encounter; Z20.822 Contact with and (suspected) exposure to COVID-19; F41.9 Anxiety disorder, unspecified; F32.9 Major depressive disorder, single episode, unspecified; I25.10 Atherosclerotic heart disease of native coronary artery without angina pectoris; F12.90 Cannabis use, unspecified, uncomplicated; D64.9 Anemia, unspecified; F10.10 Alcohol abuse, uncomplicated; Z90.710 Acquired absence of both cervix and uterus; Z95.5 Presence of coronary angioplasty implant and graft; Y92.89 Other specified places as the place of occurrence of the external cause; Z79.82 Long term (current) use of aspirin; Z79.899 Other long term (current) drug therapy